=== PATIENT | male | born 1950 | race Caucasian/White ===

== ENCOUNTER 2024-05-23 10:16 | Outpatient (AMB) | payer OTHER, SELFPAY ==
--- NOTE | 2024-05-23 10:53 | HO.SPINEOV ---
Vital Signs 05/23/24 11:08 Height 5 ft 3 in Weight 189 lb BMI 33.5 Intake Visit Reasons: Low back pain and legs Intake Note: Mr. Collado is here today c/o low back pain that radiate to the legs. 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 HPI: This 74-year-old male he is having trouble with pain down his legs and heaviness after 5-10 minutes walking or standing. Sitting down or leaning forward relieves the symptoms. He is able to cycle or walk on the treadmill for longer distance due to the fact that he is in a flexed position. I saw this patient is 2020 with similar but less intense symptoms and already recommended a decompression at that time. He decided to do more conservative treatment. He even underwent a MILD procedure which unsurprisingly had no effect. The symptoms are debilitating and affecting his quality of life. The following conservative treatment options were tried without success antiinflammatories, tylenol, physical therapy, cortisone shots PMH: Hypertension Medications: Tramadol, antihypertensivum Allergies: NKDA Social history: . Retired. Nonsmoker Physical Exam: Height 5'10 weight 205 lb. He walks in a flexed position. He walks with small steps and have difficulty lifting up his right foot. However on motor exam he has full strength. No sensory deficits. No pathological reflexes. Radiological Studies: MRI of the lumbar spine done on 07/19/2023 shows severe central spinal stenosis at L3-4, L4-5 and severe L5-S1 left-sided lateral recess stenosis. An MRI of the cervical spine shows no signs of spinal cord compression. Impression/Plan: This patient is suffering from classic neurogenic claudication due to severe lumbar spinal stenosis. The patient needs a multilevel lumbar laminotomy L3-4, L4-5 and L5-S1 to decompress the thecal sac to address the neurogenic symptoms. I described the procedure and he wants to proceed. He is scheduled for 08/07/2023. He will get preoperative clearance. Thank you for allowing me to participate in your patients care. total time spent was 50 minutes in counseling ,coordination of plan, personal review of imaging, surgical decision making and subsequent plan Roman Sterling MD, PhD Sp[facility] Fellowship Trained Neurosurgeon Director, [facility] Coding Level of Care Code New Pt Level 4 (02848) Diagnoses Lumbar stenosis with neurogenic claudication M48.062
[2024-05-23 11:08] VITALS: BMI 33.5
== END 2024-05-23 11:44 | disposition home or self-care (01) ==
PROVIDERS: PCP Pediatrics; Visit Provider Neurological Surgery
DX: M48.062 Spinal stenosis, lumbar region with neurogenic claudication (principal)
CPT/HCPCS: 99204

== ENCOUNTER 2024-08-06 05:44 | Day surgery (SDC) | payer MEDICARE, SELFPAY ==
[2024-07-28 13:46] VITALS: BP 159/88; PULSE 77; RESP 16; O2SAT 98; BMI 28.7
--- NOTE | 2024-07-28 14:11 | HO.ANESPROP2 ---
Documented by User: Izabella Lyons NP 07/28/24 14:13 HPI - Anesthesia Eval Consult details Narrative: 74yo M for L3-4, L4-5 and L5-S1 Lumbar Decompression, 08/06/24 Medically optimized per PCP [facility] Active Problems Active Problems: All Active Problems Lumbar stenosis with neurogenic claudication (Acute) Past Medical History Medical History Tremor Spinal stenosis Erectile dysfunction Heartburn HLD (hyperlipidemia) HTN (hypertension) Family History Family history of problems with anesthesia: No Surgical History Surgical History History of back surgery (~05/2023) History of Problems with Anesthesia: No Social History Social History Household Members: Spouse Housing: House Are you a primary healthcare risk control consultant to a significant other at home: No Do you presently have visiting nurse or other home services: No Comment: aware of trip hazard Patient Tobacco Use Status: Former Tobacco user Tobacco use type: Cigarette Smoked in Last 30 Days: No Use of substances other than those prescribed or required for medical reasons: No Have you been hit, kicked, punched, or otherwise hurt by someone within the past year? If so, by whom?: No Are you DNR?: No Advance Directives: No Advance Directives Information Provided: Yes Advance Directives on File: No Recently lost weight without trying: No Nutrition Risks: No Nutritional Risk Poor oral hygiene: No Gender identity: Male Meds Allergies Allergy/AdvReac Type Severity Reaction Status Date / Time Penicillins AdvReac Mild Rash Verified 08/06/24 06:14 Home Medications ?Medication ?Instructions ?Recorded ?Confirmed ?Last Taken ?Type aspirin 81 mg tablet,delayed 81 mg PO DAILY 07/25/24 08/06/24 07/30/24 History release celecoxib 200 mg capsule 200 mg PO DAILY 07/25/24 08/06/24 08/06/24 05:15 History cholecalciferol (vitamin D3) 25 25 mcg PO DAILY 07/25/24 08/06/24 Unknown History mcg (1,000 unit) capsule (Vitamin D3) cyanocobalamin (vitamin B-12) 500 500 mcg PO DAILY 07/25/24 08/06/24 Unknown History mcg tablet (Vitamin B-12) metoprolol succinate 50 mg 50 mg PO DAILY 07/25/24 08/06/24 08/06/24 05:15 History tablet,extended release 24 hr omega 7-nix-htn-fish oil 1,000 mg 1 cap PO DAILY 07/25/24 08/06/24 Unknown History (120 mg-180 mg) capsule (Fish Oil) tadalafil 20 mg tablet 20 mg PO NEEDED 07/25/24 08/06/24 Unknown History tramadol 50 mg tablet 50 mg PO Q6H PRN Pain 07/25/24 08/06/24 Unknown History atorvastatin 20 mg tablet 20 mg PO DAILY 08/06/24 08/06/24 08/06/24 05:15 History Exam Height,Weight and Vital Signs: Height 5 ft 10 in Weight 90.718 kg Last Vital Signs Pulse 77 07/28/24 13:46 Resp 16 07/28/24 13:46 BP 159/88 H 07/28/24 13:46 Pulse Ox 98 07/28/24 13:46 O2 Del Method Room Air 07/28/24 13:46 Pertinent Lab Results Pertinent Lab Results: CBC and BMP from PCP 07/2024 [place] Narrative Narrative: EKG 07/2024 ST @ 103 Airway Mallampati Class: III TM Dist: >3cm Neck ROM: Full Heart: RRR Lungs: CTAB Assessment and Plan Assessment Anesthesia Assessment: Anesthesia Plan Discussed and PAT Visit Final Anesthetic Review Family History of Problems with Anesthesia: No History of Problems with Anesthesia: No Documented by User: Carol Carrasco MD 08/06/24 08:50 PMFSH Past Medical History Medical History Tremor Spinal stenosis Erectile dysfunction Heartburn HLD (hyperlipidemia) HTN (hypertension) Surgical History Surgical History History of back surgery (~05/2023) Social History Social History Household Members: Spouse Housing: House Are you a primary healthcare risk control consultant to a significant other at home: No Do you presently have visiting nurse or other home services: No Comment: aware of trip hazard Patient Tobacco Use Status: Former Tobacco user Tobacco use type: Cigarette Smoked in Last 30 Days: No Use of substances other than those prescribed or required for medical reasons: No Have you been hit, kicked, punched, or otherwise hurt by someone within the past year? If so, by whom?: No Are you DNR?: No Advance Directives: No Advance Directives Information Provided: Yes Advance Directives on File: No Recently lost weight without trying: No Nutrition Risks: No Nutritional Risk Poor oral hygiene: No Gender identity: Male Meds Allergies Allergy/AdvReac Type Severity Reaction Status Date / Time Penicillins AdvReac Mild Rash Verified 08/06/24 06:14 Home Medications ?Medication ?Instructions ?Recorded ?Confirmed ?Last Taken ?Type aspirin 81 mg tablet,delayed 81 mg PO DAILY 07/25/24 08/06/24 07/30/24 History release celecoxib 200 mg capsule 200 mg PO DAILY 07/25/24 08/06/24 08/06/24 05:15 History cholecalciferol (vitamin D3) 25 25 mcg PO DAILY 07/25/24 08/06/24 Unknown History mcg (1,000 unit) capsule (Vitamin D3) cyanocobalamin (vitamin B-12) 500 500 mcg PO DAILY 07/25/24 08/06/24 Unknown History mcg tablet (Vitamin B-12) metoprolol succinate 50 mg 50 mg PO DAILY 07/25/24 08/06/24 08/06/24 05:15 History tablet,extended release 24 hr omega 0-eyu-bbv-fish oil 1,000 mg 1 cap PO DAILY 07/25/24 08/06/24 Unknown History (120 mg-180 mg) capsule (Fish Oil) tadalafil 20 mg tablet 20 mg PO NEEDED 07/25/24 08/06/24 Unknown History tramadol 50 mg tablet 50 mg PO Q6H PRN Pain 07/25/24 08/06/24 Unknown History atorvastatin 20 mg tablet 20 mg PO DAILY 08/06/24 08/06/24 08/06/24 05:15 History Assessment and Plan Assessment Anesthesia Assessment: Chart Reviewed Final Anesthetic Review NPO: Yes ASA Class: II Final Preanesthetic Review: No Changes in Pt Med Stat, Meds/Allgs Chart Reviewed, Consent Obtained/Reviewed and Anes Risks/Benef Reviewed Patient Risk: Low Procedure Risk: Intermediate Anesthetic Plan Anesthetic Plan: GA Disposition: Standard PACU
[2024-08-06] VITALS (7 sets, daily range): BP systolic 116–170; BP diastolic 54–86; PULSE 86–97; RESP 12–16; TEMP 36.1–37; O2SAT 96–97; BMI 28.7
--- NOTE | ~2024-08-06 | FL_ITS ---
EXAMINATION: FL GUIDANCE ONLY HISTORY: l3-s1 decompression COMPARISON: None available. TECHNIQUE: Fluoroscopy time: 6.2 seconds. Cumulative Dose: 6.1569 mGy. DAP: 1.9968 mGym2 Images: 3. FINDINGS: Multiple images of the lumbar spine performed in the lateral projection demonstrate probes directed toward the L3-4, L4-5, and L5-S1 intervertebral disc spaces from posterior approaches. FL/FL guidance in OR IMPRESSION: Fluoroscopy during procedure. Please see procedure report for additional information. Electronically signed by: David Dhaliwal MD 08/08/2024 11:01 AM [facility] [place]
[2024-08-06] MEDS: methocarbamoL 750 MG TABLET PO (06:36)
[2024-08-06] MEDS: Gabapentin 300 MG CAPSULE PO (06:36)
[2024-08-06] MEDS: Lactated Ringers 1,000 ML 100 ML IVCONT (06:44)
--- NOTE | 2024-08-06 06:54 | MHC.SHP ---
Pre-Procedural Eval Section A - 24 Hr Update-Section A only Date of Service: 08/06/24 Section B - Complete if H&P > 30 days Chief Complaint: Spinal stenosis, lumbar region with neurogenic cla Allergies: Allergies Allergy/AdvReac Type Severity Reaction Status Date / Time Penicillins AdvReac Mild Rash Verified 08/06/24 06:14 Review of Systems Sugical H&P ROS: Negative: Constitution, Cardiovascular, Respiratory, Neurological, Psychiatric, Hem-Onc, Allergic/Immunologic, Gastrointestinal, Genitourinary, Musculoskeletal, Integumentary, Endocrine and Eyes/Ears/Nose/Throat Exam Surgical H&P Exam: Not Evaluated: HEENT, Not Evaluated: Heart, Not Evaluated: Lungs, Not Evaluated: Extremities, Not Evaluated: Abdomen, Not Evaluated: Skin and Not Evaluated: Neurological Exam Comment: The patient is awake, alert, no acute distress. Proposed surgical incision site is clean, dry, with no signs of recent surgery or trauma. Plan Diagnosis/Plan: Unchanged I have reviewed the history and physical and performed a pertinent physical examination on my patient. No changes have occurred unless specified. Plan remains the same, L3-S1 lumbar decompression. Time Spent With Patient Time: Total time managing care of this patient today ___13_ minutes.
[2024-08-06] MEDS: Acetaminophen 1,000 MG/100 ML PIGGYBACK 400 MG IV (07:30)
[2024-08-06] MEDS: ceFAZolin Sodium/Dextrose,Iso 2 GM/50 ML PIGGYBACK IV (07:30)
--- NOTE | 2024-08-06 10:03 | P.OP_ITS ---
Operative Note Operative Note Date of Service: 08/06/24 Narrative: Preoperative Diagnosis: L3-4, L4-5 and L5-S1 spinal stenosis/lateral recess stenosis/neural foraminal stenosis Operation: L3-L4, L4-5, L5-S1 Laminotomy, Partial facetectomy and foraminotomy with use of microscope Consent Informed Consent was obtained for this operation. I have explained the nature, purpose and benefits of the operation. I have discussed the risks and benefit of the operation including possible complications or adverse events with patient/family. Alternative(s) were discussed with the patient with their relative benefits and risks as well as the consequences of not accepting the operation were included in obtaining consent. Surgeon: JOHN REA MD, PHD Procedure Assisted By: Nicholas Raza Description of Procedure This 74-year-old male suffering from neurogenic claudication due to multilevel lumbar stenosis.. The patient was offered a decompression of the L3-4, L4-5 and L5-S1 levels. The procedure and complications were explained. The patient was consented. The patient was brought to the operating room and endotracheally intubated. The patient was turned in prone position on the Karl frame. Prep and drape was done followed by timeout. The Physician quality control assistant provided access. A mid lumbar incision was made followed by release of the paravertebral muscle on the left side to expose the L3-S1 laminae and facet joints. An intraoperative x-ray was obtained to confirm the correct levels. The microscope was brought in. I took over the procedure. The high-speed drill was used to do a left L3-4 brii laminotomy until flavum ligament was reached. A #2 Kerrison was used to expand the laminotomy near flush to the pedicles and to include a partial facetectomy. The flavum ligament was opened and resected with a #3 Kerrison to decompress the underlying thecal sac. The flavum ligament was removed to decompress the lateral recess and the exiting L4 nerve root. Then the patient turned contralaterally. The spinous process was undercut. The plane was created between the dura and the flavum ligament contralaterally which was accordingly resected to decompress the contralateral lateral recess and exiting nerve root. A long nerve hook could be easily passed along the medial side of the pedicles as a sign of adequate decompression. Then attention was turned to the L4-5 level where a similar type of decompression was done. A left L4-5 hemilaminotomy was done. The flavum ligament was opened and resected to decompress the exiting L5 nerve root in the lateral recess. Patient was turned contralaterally with undercutting of the spinous process I was able to d ecompress the contralateral side in a similar fashion. Finally the L5-S1 level was done through the left side by doing a L5-S1 hemilaminotomy. The S1 nerve root was decompressed as well as the thecal sac bilaterally. The microscope was removed. Hemostasis was done. The physician quality control assistant close the Incision in 2 layers. Steri-Strips were used to approximate incision. An OpSite with Tegaderm was used to cover the incision. All sponge needle counts were correct. Patient was extubated and transported in stable is to recovery room. Anesthesia: General Estimated Blood Loss (ml): 50 mL Complications: None Duration of Surgery: 2 hours Postoperative Plan: Discharge to home
--- NOTE | 2024-08-06 10:06 | P.DS_ITS ---
DS: Providers Provider Date of Service: 08/06/24 Date of discharge: 08/06/24 Primary care physician: Israel Meeks MD DS: Summary Time Attestation Discharge Coordination Time (in mins): 13 Quality: Safe Use of Opioids Does Pt have an Active Cancer Diagnosis on the Problem List?: No Quality: Stroke Does the patient have a stroke diagnosis?: No Physical Exam Vital Signs: Vital Signs: Last Vital Signs Temp 98.6 F 08/06/24 06:22 Pulse 86 08/06/24 06:22 Resp 16 08/06/24 06:22 BP 151/83 H 08/06/24 06:44 Pulse Ox 97 08/06/24 06:22 O2 Del Method Room Air 08/06/24 06:22 BMI result Body Mass Index 28.7 Discharge Plan Discharge Patient Disposition: Home, Self-Care Referrals: Israel Meeks MD [Primary Care Provider] - 1 Week Discharge Medications: New oxycodone 5 mg tablet 5 mg PO Q6H PRN (Reason: pain) Qty: 28 0RF Rx Instructions: Partial Fill upon patient request. Continued metoprolol succinate 50 mg tablet extended release 24 hr 50 mg PO DAILY tramadol 50 mg tablet 50 mg PO Q6H PRN (Reason: Pain) cyanocobalamin (vitamin B-12) [Vitamin B-12] 500 mcg Tablet 500 mcg PO DAILY cholecalciferol (vitamin D3) [Vitamin D3] 25 mcg (1,000 unit) Capsule 25 mcg PO DAILY tadalafil 20 mg tablet 20 mg PO NEEDED omega 8-iri-tpw-fish oil [Fish Oil] 1,000 (120-180) mg Capsule 1 cap PO DAILY atorvastatin 20 mg tablet 20 mg PO DAILY Held celecoxib 200 mg capsule 200 mg PO DAILY Hold Instructions: Resume on 08/07/24. aspirin 81 mg Tablet,Delayed Release (Dr/Ec) 81 mg PO DAILY Hold Instructions: Resume on 08/10/24. Discharge Orders: Discharge Order (Routine); Ordered 08/06/24 Ordered By: Nicholas Cary Diet: Advance to usual diet Activity on Discharge: As tolerated Activity Restrictions/Additional Instructions: After your spinal surgery we ask you to observe the following restrictions/guidelines: Activity: It is normal to feel some discomfort as you increase your activity, but that will improve with time. We ask you avoid heavy lifting or acitivities that cause pain. As a general rule, 8lbs is a safe limit for lifting right after surgery. Walk as much as you feel comfortable but not to exhaustion. You will feel extra tired the first few days after surgery. Stay well hydrated. It is OK to walk up and down stairs You may return to driving when you are off narcotics (such as vicodin, oxycodone, dilaudid, etc), and you are back to normal functional capacity. If you have any concerns please check with office before driving. Return to work is specific to each patient and each surgery, so please speak with your doctor/PA at first follow up. Please bring paperwork such as FMLA at that time if you need it filled out. Medications: Please hold your Aspirin for 3 days after surgery. We recommend you take 1,000mg Tylenol every 8 hours for the first few weeks after surgery, if you do not have any liver issues and can tolerate this medication. Do not exceed 4,000mg daily. We will give you a short supply of narcotics after surgery (usually one weeks worth). If you need more please call the office but do not use more than prescribed. You will need to give our office 48 hours notice if you need narcotics refilled and we do not fill narcotics on weekends or evenings. If you are on a narcotic, it is a good idea to take a stool softener such as colace or senna to avoid constipation If you take blood thinner such as aspirin, Plavix, Coumadin, Effient, Eliquis etc for conditions such as Afib, DVT, Pulmonary embolus, coronary disease, stents etc please speak with your surgeon about specific details as to when you can resume these medications. You can resume other NSAIDs on post op day 1 (eg: Meloxicam, Motrin, Naproxen, etc). Follow up: Please call the office, , after surgery to arrange a 3 week follow up for wound check. Wound Care: You may remove your dressing on the first day after surgery. ?You may ?leave open to air. Please do not remove the steri strips underneath. they will fall off on their own in one week. IT IS NORMAL FOR THE WOUND TO OOZE OR BE BLOODY FOR A FEW DAYS AFTER SURGERY. ?IF THIS HAPPENS JUST PLACE NEW DRESSING OVER IT TO AVOID STAINING CLOTHES. You may shower on post op day # 1 We ask that you do not let the water soak the wound. If it does get wet, just towel dry lightly. Please do not scrub your incision or place any type of chemical/ointment on the wound. No tub baths, pools or jacuzzis for one month. If you have any leaking or redness from your wound, or fevers, please call the office. Print Language: Japanese
== END 2024-08-06 11:49 | disposition home or self-care (01) ==
PROVIDERS: PCP Pediatrics; Visit Provider Neurological Surgery
PROC: (CPT 63047; principal; 2024-08-06 07:30)
DX: M48.062 Spinal stenosis, lumbar region with neurogenic claudication (principal); I10 Essential (primary) hypertension; E78.00 Pure hypercholesterolemia, unspecified; R12 Heartburn; N52.9 Male erectile dysfunction, unspecified; Z79.82 Long term (current) use of aspirin; Z79.899 Other long term (current) drug therapy; Z88.8 Allergy status to other drugs, medicaments and biological substances; Z87.891 Personal history of nicotine dependence
CPT/HCPCS: 63047; 63048 ×2; J0131; J0690; J1100; J1885; J2003; J2405; J2704; J3010

== ENCOUNTER → 2024-08-06 05:44 | Outpatient (BNV) | payer MEDICARE, SELFPAY | PROVIDERS: PCP Pediatrics; Visit Provider Neurological Surgery | DX: M48.062 Spinal stenosis, lumbar region with neurogenic claudication (principal) | CPT/HCPCS: 63047; 63048; 99499 ==

== ENCOUNTER 2024-08-27 14:55 | Outpatient (AMB) | payer OTHER, SELFPAY ==
--- NOTE | 2024-08-27 14:57 | A.SPINEOV_ITS ---
Intake Visit Reasons: 1st post op Intake Note: Mr. Collado is here today for his 1st post op. Receiving Coordinator Required: No Allergies Penicillins Adverse Reaction (Mild, Verified 08/27/24 14:58) Rash Assessment & Plan Assessment & Plan (1) Lumbar stenosis with neurogenic claudication: Code(s): M48.062 - Spinal stenosis, lumbar region with neurogenic claudication Category: Medical Plan Procedure: L3-L4, L4-5, L5-S1 Lumbar decompression Zachary is a pleasant 74-year-old male who comes in today for his 1st postoperative visit after having an L3-S1 lumbar decompression completed by Dr. Sterling. He reports that overall he has been doing well since his surgery. He does state that he had quite a bit of swelling and bruising near the incision site after surgery, but this has subsided. He feels he is walking slightly better, but still feel he has pain with prolonged ambulation. Thankfully he is able to walk about 100 yd before feeling pain now. He denies any back pain. No new neurological deficits. The patient ambulates well and rises from a seated position without difficulty. His posterior incision site is closed and well healing. No signs of drainage or edema. I would like Zachary to follow up with us again in 6 weeks for his 2nd postoperative visit. Nicholas Sterling MD,PhD [facility] Coding Level of Care Code Global (13470) Diagnoses Lumbar stenosis with neurogenic claudication M48.062
--- OUTSIDE RECORDS SUMMARY | 2024-08-27 17:56 | XMS_ITS | Clinical Summary ---
Author Organization [facility] [address] [facility] lding Address [address] [place] [address] Phone Care Team Providers Care Hotel Sales Manager Name Role Phone Charity Meeks MD Primary Care Provider [phone] Allergies Active Allergy Reactions Criticality Noted Date Comments Atorvastatin Pain Medium 12/18/2023 Medications celecoxib (CeleBREX) 200 mg capsule Take 1 capsule (200 mg total) by mouth 1 (one) time each day. 30 capsule 2 4 Active tadalafiL (CIALIS) 20 mg tablet 4 Active aspirin 81 mg capsule Take 1 tablet by mouth 1 (one) time each day. 7 Active cyanocobalamin (VITAMIN B-12) 500 mcg tablet Take by mouth. 7 Active omega3/dha/epa /fish oil/vit D3 (FISH OIL-VIT D3 ORAL) Take by mouth. 7 Active losartan (COZAAR) 25 mg tablet TAKE 1 TABLET BY MOUTH EVERY DAY 90 tablet 1 5 Active losartan (COZAAR) 50 mg tablet TAKE 1 TABLET BY MOUTH EVERY DAY 90 tablet 1 5 Active metoprolol succinate (TOPROL-XL) 50 mg 24 hr tablet TAKE 1 TABLET BY MOUTH EVERY DAY 90 tablet 1 5 Active metoprolol succinate (TOPROL-XL) 50 mg 24 hr tablet TAKE 1 TABLET BY MOUTH EVERY DAY 90 tablet 4 08/05/19 25 Discontinued Active Problems Problem Noted Date Diagnosed Date Hypertension 11/19/2023 Spinal stenosis of lumbar re gion with neurogenic claudication 05/18/2021 Overweight (BMI 25.0-29.9) 09/14/2017 Erectile dysfunction 04/30/2017 Heart burn 04/30/2017 Hypercholesteremia 01/11/2006 Encounters Date Type Department Care Team Description 07/22/2024 10:00 AM EST Consult Adult Medicine - [place] [address] [place] [address] Charity Meeks MD Preop cardiovascular exam (Primary Dx) 06/09/2024 Telephone Adult Medicine - [place] [address] [place] [address] Angelina Kowalski, KEV Appointment from Last 3 Months Immunizations Name Administration Dates Next Due Influenza, Unspecified 05/04/2016 Moderna SARS-CoV-2 COVID-19, mRNA, LNP-S, preservative free 09/21/2020,08/24/2020 Surgical History Surgery Date Site/Laterality Comments OTHER SURGICAL HISTORY PROCEDURE: DENIES PREVIOUS SURGERY Medical History Medical History Date Comments Hypercholesteremia 01/11/2006 DX:Hyperchole steremia Heart burn 04/30/2017 DX:Heart burn Family History Medical History Relation Name Comments Diabetes Mother Diabetes Sister 1 Relation Name Status Comments Mother Sister 1 Sister 2 Social History Tobacco Use Types Packs/Day Years Used Date Smoking Tobacco: Former Cigarettes Q uit: 07/05/2017 Smokeless Tobacco: Never Tobacco Cessation:Counseling Given: Not Answered Alcohol Use Standard Drinks/Week Comments Yes 2 (1 standard drink = 0.6 oz pur e alcohol) Housing Instability Answer Date Recorde d Are you worried that in the next 2 months you may not have stable housing? No 07/15/2024 Food Access & Nutrition Answer Date Rec orded Do you have access to a vari ety of food including fruits and vegetables? Yes 07/15/2024 Access to Healthcare Answer Date Record ed Within the last 3 months, donovan w many times did you visit the emergency department for your medical care? 0 07/15/2024 Health Literacy Answer Date Recorded How often do you need to hav e someone help you when you read instructions, pamphlets, or other written material from your doctor or pharmacy? Never 07/15/2024 Caregiver: How often do you need to have someone help you when you read instructions, pamphlets, or other written material from your doctor or pharmacy? Not on file 07/15/2024 Financial Risk Answer Date Recorded How hard is it for you to pa y for the very basics like food, housing, medical care, and air conditioning / heating? Somewhat hard 07/15/2024 Transportation Answer Date Recorded Has the lack of transportati on kept you from meetings, work, or from getting things needed for daily living? No Has the lack of transportati on kept you from medical appointments or from getting medications? No 07/15/2024 Social Isolation Answer Date Recorded How often do you feel lonely or isolated from th ose around you? Never 07/15/2024 Food Risk Answer Date Recorded Within the past 12 months we worried whether our food would run out before we got money to buy more. Never true 07/15/2024 Within the past 12 months th e food we bought just didn't last and we didn't have money to get more. Never true 07/15/2024 Dependent Care Answer Date Recorded Do you need help finding or paying for care for your loved ones. For example, children's program coordinator or elderly care for an older adult? No 07/15/2024 Education Answer Date Recorded Do you think completing more education or training, like finishing a GED, going to college, or learning a trade, would be helpful for you? No 07/15/2024 Employment and Income Answer Date Recor ded During the last four weeks, have you been actively looking for work? No 07/15/2024 Living Situation Answer Date Recorded What is your living situation? 0 07/15/2024 Sex and Gender Information Value Date Recorded Sex Assigned at Not on file Legal Sex Male 1:35 PM EST Gender Identity Not on file Sexual Orientation Not on file Obstetrics History Last Filed Vital Signs Vital Sign Reading Time Taken Comments Blood Pressure 132/92 07/22/2024 10:03 AM EST Pulse 115 07/22/2024 10:03 AM EST Temperature 36.8 ??C (98.3 ??F) 07/22/2024 10:[address] Respiratory Rate - - Oxygen Saturation - - Inhaled Oxygen Concentration - - Weight 90.7 kg (200 lb) 07/22/2024 10:03 AM EST Height 177.8 cm (5' 10 ) 07/22/2024 10:03 AM EST Body Mass Index 28.7 07/22/2024 10:03 AM EST Plan of Treatment Upcoming Encounters Date Type Department Care Team (Late st Contact Info) Description 10/28/2024 11:00 AM EDT Office Visit Adult Medicine - [place] [address] [place] [id number] Kaye Zelaya PA [address] [place] [address] Health Maintenance Due Date Last Done Comments DTaP,Tdap,and Td Vaccines (1 - Tdap) 1968 Pneumococcal Vaccine: 50+ Years (1 of 1 - PCV) 1999 Zoster Vaccines (1 of 2) 1999 Colorectal Cancer Screening: Stool Based Tests (FOBT/FIT) 05/12/2022 Falls Risk Assessment 05/12/2022 Medicare Annual Wellness Visit 05/12/2022 COVID-19 Vaccine (4 - 2023-2 5 season) 2024 06/07/2021, 09/21/2020, 08/24/2020 Influenza Vaccine (#1) 2024 05/04/2016 RSV Immunization Patients 60 + Years Old (1 - 1-dose 75+ series) 2024 Depression Screening 07/15/2025 07/15/2024 Social Influencers of Health Screening 07/15/2025 07/15/2024 Hypertension/CHF/CAD Annual BMP Blood Test 07/22/2025 07/22/2024, 07/13/2023 Cholesterol Screening (Lipid Panel) 04/07/2027 04/07/2022, 10/06/2020 Hepatitis C Screening Completed 10/26/2015 Colorectal Cancer Screening: Colonoscopy Discontinued 04/30/2017 Abdominal Aortic Aneurysm (AAA) Screen Completed 02/09/2021 HIB Vaccines Aged Out No longer eligi ble based on patient's age to complete this topic HPV Vaccines Aged Out No longer eligi ble based on patient's age to complete this topic Hepatitis A Vaccines Aged Out No long er eligible based on patient's age to complete this topic Hepatitis B Vaccines Aged Out No long er eligible based on patient's age to complete this topic IPV Vaccines Aged Out No longer eligi ble based on patient's age to complete this topic MMR Vaccines Aged Out No longer eligi ble based on patient's age to complete this topic Meningococcal ACWY Vaccine Aged Out N o longer eligible based on patient's age to complete this topic Meningococcal B Vacine Aged Out No lo nger eligible based on patient's age to complete this topic RSV Immunization Patients Under 20 months Aged Out No longer eligible based on patient's age to complete this topic Varicella Vaccines Aged Out No longer eligible based on patient's age to complete this topic Procedures Procedure Name Priority Date/Time Associated Diagnosis Comments CBC WITH AUTO DIFFERENTIAL Routine 07/22/2024 10:57 AM EST Pre-operative examination COMPREHENSIVE METABOLIC PANEL Routine 07/22/2024 10:57 AM EST Pre-operative examination CBC AND DIFFERENTIAL Routine 07/22/2024 10:57 AM EST Pre-operative examination ECG 12-LEAD Routine 07/22/2024 10:56 AM EST Preop cardiovascular exam ABDOMINAL AORTIC ANEURYSM SCRREN Routine 02/09/2021 LIPID PANEL Routine 10/06/2020 COLONOSCOPY Routine 04/30/2017 HEPATITIS C SCREENING Routine 10/26/2015 from Last 3 Months or Most Recently Relevant to Health Maintenance Results * CBC auto differential (07/22/2024 10:57 AM EST) WBC 6.3 4.8 - 10.8 K/mcL LAB HEMETOLOGY METHOD 07/22/2024 12:18 PM EST [facility] RBC 4.90 4.50 - 5.50 M/mcL LAB HEMETOLOGY METHOD 07/22/2024 12:18 PM EST [facility] Hemoglobin 14.4 13.5 - 17.5 g/dL LAB HEMETOLOGY METHOD 07/22/2024 12:18 PM [facility] Hematocrit 43.6 42.0 - 54.0 % LAB HEMETOLOGY METHOD 07/22/2024 12:18 PM [facility] MCV 89.5 79.0 - 98.0 FL LAB HEMETOLOGY METHOD 07/22/2024 12:18 PM [facility] MCH 29.6 27.0 - 32.0 pcg LAB HEMETOLOGY METHOD 07/22/2024 12:18 PM [facility] MCHC 33.0 32.0 - 37.0 g/dL LAB HEMETOLOGY METHOD 07/22/2024 12:18 PM [facility] RDW 13.2 11.0 - 15.0 % LAB HEMETOLOGY METHOD 07/22/2024 12:18 PM [facility] Platelets 269 130 - 400 K/mcL LAB HEMETOLOGY METHOD 07/22/2024 12:18 PM [facility] MPV 9.5 7.0 - 11.0 FL LAB HEMETOLOGY METHOD 07/22/2024 12:18 PM [facility] NRBC 0.0 <1.0 % LAB HEMETOLOGY METHOD 07/22/2024 12:18 PM [facility] NRBC Absolute 0.00 <0.10 K/mcL LAB HEMETOLOGY METHOD 07/22/2024 12:18 PM [facility] Neutrophils Relative 64.0 % LAB HEMETOLOGY METHOD 07/22/2024 12:18 PM [facility] Lymphocytes Relative 24.9 % LAB HEMETOLOGY METHOD 07/22/2024 12:18 PM [facility] Monocytes Relative 9.2 % LAB HEMETOLOGY METHOD 07/22/2024 12:18 PM [facility] Eosinophils Relative 0.8 % LAB HEMETOLOGY METHOD 07/22/2024 12:18 PM EST [facility] Basophils Relative 0.8 % LAB HEMETOLOGY METHOD 07/22/2024 12:18 PM EST [facility] Immature Granulocytes Relative 0.3 % LAB HEMETOLOGY METHOD 07/22/2024 12:18 PM [facility] Neutrophils Absolute 4.04 1.50 - 7.00 K/mcL LAB HEMETOLOGY METHOD 07/22/2024 12:18 PM EST [facility] Lymphocytes Absolute 1.57 1.00 - 5.00 K/mcL LAB HEMETOLOGY METHOD 07/22/2024 12:18 PM EST [facility] Monocytes Absolute 0.58 0.20 - 1.00 K/mcL LAB HEMETOLOGY METHOD 07/22/2024 12:18 PM [facility] Eosinophils Absolute 0.05 0.00 - 0.50 K/mcL LAB HEMETOLOGY METHOD 07/22/2024 12:18 PM EST [facility] Basophils Absolute 0.05 0.00 - 0.20 K/mcL LAB HEMETOLOGY METHOD 07/22/2024 12:18 PM [facility] Immature Granulocytes Absolute 0.02 0.00 - 0.03 K/mcL LAB HEMETOLOGY METHOD 07/22/2024 12:18 PM [facility] Blood Venous blood specimen / Unknown Venipuncture / Unknown 07/22/2024 10:57 AM EST 07/22/2024 10:57 AM EST us C Rishi Meeks MD LAB BLOOD ORDERABLES Final Res ult [facility] [address] [place] [address], * (ABNORMAL) Comprehensive metabolic panel (07/22/2024 10:57 AM EST) Sodium 136 133 - 145 mmol/L LAB CHEMISTRY METHOD 07/22/2024 12:47 PM [facility] Potassium 4.6 3.5 - 5.5 mmol/L LAB CHEMISTRY METHOD 07/22/2024 12:47 PM [facility] Chloride 104 96 - 110 mmol/L LAB CHEMISTRY METHOD 07/22/2024 12:47 PM [facility] CO2 28 21 - 32 mmol/L LAB CHEMISTRY METHOD 07/22/2024 12:47 PM [facility] Anion Gap 4 3 - 11 LAB CHEMISTRY METHOD 07/22/2024 12:47 PM [facility] Glucose 106(H) 70 - 100 mg/dL LAB CHEMISTRY METHOD 07/22/2024 12:47 PM [facility] BUN 23 5 - 25 mg/dL LAB CHEMISTRY METHOD 07/22/2024 12:47 PM [facility] Creatinine 1.25 0.70 - 1.30 mg/dL LAB CHEMISTRY METHOD 07/22/2024 12:47 PM [facility] eGFR 60 >=60 mL/min/1. 73m2 LAB CHEMISTRY METHOD 07/22/2024 12:47 PM [facility] Comment:Calculation based on the??Chronic Kidney Disease Epidemiology Collaboration (CKD-EPI) equation refit??without adjustment for race. BUN/Creatinine Ratio 18.4 LAB CHEMISTRY METHOD 07/22/2024 12:47 PM [facility] Calcium 10.3 8.5 - 10.5 mg/dL LAB CHEMISTRY METHOD 07/22/2024 12:47 PM [facility] AST (SGOT) 17 10 - 42 unit/L LAB CHEMISTRY METHOD 07/22/2024 12:47 PM [facility] ALT (SGPT) 37 10 - 60 unit/L LAB CHEMISTRY METHOD 07/22/2024 12:47 PM [facility] Alkaline Phosphatase 80 42 - 121 unit/L LAB CHEMISTRY METHOD 07/22/2024 12:47 PM EST [facility] Total Protein 7.5 6.0 - 8.0 g/dL LAB CHEMISTRY METHOD 07/22/2024 12:47 PM EST [facility] Albumin 4.2 3.2 - 5.0 g/dL LAB CHEMISTRY METHOD 07/22/2024 12:47 PM EST [facility] Total Bilirubin 0.5 0.0 - 1.4 mg/dL LAB CHEMISTRY METHOD 07/22/2024 12:47 PM EST [facility] Blood Venous blood specimen / Unknown Venipuncture / Unknown 07/22/2024 10:57 AM EST 07/22/2024 10:57 AM EST Charity Meeks MD LAB BLOOD ORDERABLES Final Res ult [facility] [address] [place] [address], * ECG 12 lead (07/22/2024 10:56 AM EST) Narrative Charity Meeks MD - 07/22/2024 10:56 AM EST Sinus tachycardia Charity Meeks MD ECG ORDERABLES Final Result * Abdominal Aortic Aneurysm Screen (02/09/2021) Pathologist [facility] Abdominal Aortic Aneurysm (AAA) Screening ABSTRACTED Anatomical Region Laterality Modality Other Historical Delfina [facility] Final Result * (ABNORMAL) Lipid panel (10/06/2020) LDL/HDL Ratio 4 0 - 4 Triglycerides 194(A) 0 - 150 mg/dL Cholesterol 204(A) 0 - 200 mg/dL HDL 58 >=40 mg/dL LDL Cholesterol 108(A) 0 - 100 mg/dL Blood Venous blood specimen / Unknown Jacob Mathis MD LAB BLOOD ORDERABLES Cookie l Result * Colonoscopy (04/30/2017) Colonoscopy no interpretation , abstracted Anatomical Region Laterality Modality Other Historical Provider HEALTH MAINTENANCE Final Result * Hepatitis C Screening (10/26/2015) Hepatitis C Screening ABSTRACTED Historical Provider HEALTH MAINTENANCE Final Result from Last 3 Months or Most Recently Relevant to Health Maintenance Insurance [employer] Care Teams Hotel Sales Manager Relationship Specialty Start Date End Date Charity Meeks MD [address] [place] [address] PCP - General Internal Medicine 05/30/24
--- OUTSIDE RECORDS SUMMARY | 2024-08-27 17:56 | XMS_ITS | Data Portability ---
Author Organization [place] - [facility], [facility] Address [address] [place] [address] Care Team Providers Care Timber Inspector Name Role Phone [facility] Primary Care Provi evan Assessment Encounter Date Assessment Date Assessment LastModified by Organization Details LastModified Time 03/07/2024 03/07/2024 I am seeing the patient today under the supervision of who was available but who did not see the patient. Please see procedure documentation for further information about the injection performed today. [email or web address] Not available 03/07/2024 07:25:10 Plan of Treatment Reminders Order Date Submit Date Provider Last Modified By Organization Details Last Modified Time Details Appointments None recorded. Lab None recorded. Referral None recorded. Procedures None recorded. Surgeries None recorded. Imaging XR, knee, 4 or more view - 312 right knee 4v 2024 025 claudia [facility], [address] [facility], [facility] [address], [place], [address], 5 16:07:02 Medication Orders meloxicam 15 mg tablet 2023 024 [id number], [address] [place], [address], 4 11:09:28 Patient TargetsNo targets recorded. Patient Instructions Encounter Date Encounter Id Patient Instructions Last Modified By Organization Details Last Modified Time 03/07/2024 [id number] You have been provided with a viscosupplementation injection in order to reduce the pain that you are experiencing from your arthritis. The injection consists of a lubricating injection called hyaluronic acid. Please note that not everyone will have a lasting response following the injection. PATIENT INSTRUCTIONS I recommend icing the affected area for 20 minutes 3-4 times per day. It is recommended that you refrain from any high level activities using the joint or limb that was injected for approximately 24-48 hours. Normal day-to-day activities are generally not a problem. POSSIBLE SIDE EFFECTS Individuals with dark complexions may experience some skin discoloration locally at the site of the injection. There is the possibility of an increase in discomfort within 48 hours following the injection. This is called a ? flare? . To help minimize the chances of this, please see the post-injection instructions above. There is a less than 1% chance of an infection. If you notice any signs of infection (redness, warmth, drainage, fever greater than 100 degrees) please call our office or contact us through the portal ZAN. [email or web address] Not available 03/07/2024 07:25:14 Reason for Referral None Reported. Results Created Date Observation Date Name Description Value Unit Range Abnormal Flag Note LastModifiedBy Organization Detail LastModifiedTime 06/20/19 25 06/20/2024 XR, knee, 4 or more view [email or web address]:/ [email or web address] ?Encry pted=s hAaTro YD8dLq bEUv6g %2BXZw aYqtaq 0bqfl% 2Fg9IQ a4ajBk vP9nXo QUaueC m3YtLR FvZlgJ JJ8mAn HZtai3 [id number] AC0Kqb 3uFVKO kKiQtr MwF INTERFACE [facility] [address] [facility] [address], [place], [address], 06/20/2024 13:44:47 06/20/19 25 06/20/2024 XR, knee, 4 or more view http:/ [email or web address] ?Encry pted=s hAaTro YD8dLq bEUv6g %2BXZw aYqtaq 0bqfl% 2Fg9IQ a4ajBk vP9nXo QUaueC m3YtLR FvZlgJ JJ8mAn HZtai3 4z9516 AC0Kqb 3uFVKO kKiQtr MwF INTERFACE [facility] [address], [place], [address], 06/20/2024 13:44:49 Result Notes None recorded. Problems Name Problem SNOMED Code Status Onset Date Resolution Date Notes Provider Name and Address Organization Details Recorded Time Osteoarthri tis of right knee joint 1114250879134 00 Active 2023 Winifred Hays i, PA-C [address], [place], [address], [facility] 10:10:30 Problem Notes None recorded. Procedures Surgical History Date Name Laterality Status Provider Name and Address Organization Details Recorded Time 5 Sports Knee 4&1 completed Winifred Morales PA-C [address] [facility], [place], [address], [facility] 06/20/2024 10:32:57 4 Durolane Knee Injection completed José Antonio Alcaraz PA-C [address], [place], [address], [facility] 03/07/2024 07:25:21 4 Sports Knee 4&1 completed Destiny Mireles PA-C [address] [facility], [place], [address], [facility] 01/08/2024 09:17:47 4 Sports Knee 4&1 completed Destiny Mireles PA-C [address], [place], [address], [facility] 10/04/2023 09:52:50 Imaging Results Imaging Date Name Status LastModified by Organiz ation Details LastModified Time 06/20/2024 XR, knee, 4 or more view completed INTERFACE [facility] [address], [place], [address], 06/20/2024 13:44:47 06/20/2024 XR, knee, 4 or more view completed INTERFACE [facility] [address], [place], [address], 06/20/2024 13:44:49 Procedure Notes None recorded. Medical Equipment None Reported. Allergies No known drug allergies Medications Name Sig Start Date Stop Date Status Note LastModified by Organization Details LastModified Time losartan 50 mg tablet TAKE 1 TABLET BY MOUTH EVERY DAY active Not Available Not Available No t Available celecoxib 200 mg capsule TAKE 1 CAPSULE BY MOUTH 1 TIME EACH DAY. active Not Available Not Available No t Available atorvastati n 20 mg tablet TAKE 1 TABLET BY MOUTH EVERY DAY active Not Available Not Available No t Available metoprolol succinate ER 50 mg tablet,exte nded release 24 hr TAKE 1 TABLET BY MOUTH EVERY DAY active Not Available Not Available No t Available meloxicam 15 mg tablet TAKE 1 TABLET EVERY DAY BY ORAL ROUTE AFTER MEAL(S). 2023 active Not Available Not Available Not Avai lable amlodipine 5 mg tablet TAKE 1 TABLET BY MOUTH DAILY FOR 180 DAYS. TAKE BEFORE BED active Not Available Not Available No t Available tramadol 50 mg tablet TAKE 1 OR 2 TABLETS BY MOUTH TWICE A DAY NEEDED ONLY WITH ACETAMINO PHEN 1000 MG active Not Available Not Available No t Available sildenafil 100 mg tablet TAKE 1 TABLET BY MOUTH EVERY DAY NEEDED FOR ERECTILE DYSFUNCTI ON active Not Available Not Available No t Available amoxicillin 500 mg tablet TAKE 2 TABLETS NORW, THEN TAKE 1 TABLET BY MOUTH 3 TIMES A DAY 10/03 completed Not Available Not Available Not Available losartan 25 mg tablet TAKE 1 TABLET BY MOUTH EVERY DAY active Not Available Not Available No t Available tadalafil 20 mg tablet TAKE 1 TABLET BY MOUTH NEEDED, 30 MIN-1 HOUR BEFORE ANTICIPAT ED INTERCOUR SE active Not Available Not Available No t Available Vitals Date Recorded Body height Body mass index (BMI) Body weight Provider Name and Address Organization Details Last Updated DateTime 10/04/2023 177.8 cm 29.4 kg/m2 53132.44 g REAL Jolley [facility] 10/04/2023 09:11:52 Date Recorded Body height Body mass index (BMI) Body weight Provider Name and Address Organization Details Last Updated DateTime 03/07/2024 177.8 cm 29.4 kg/m2 77839.44 g JAIME [facility] 03/07/2024 09:29:32 Date Recorded Body height Body mass index (BMI) Body weight Provider Name and Address Organization Details Last Updated DateTime 05/06/2024 177.8 cm 29.4 kg/m2 03684.44 g Lupe Maharaj [facility] 05/06/2024 09:27:55 Date Recorded Body height Body mass index (BMI) Body weight Systolic blood pressure Diastolic blood pressure Provider Name and Address Organization Details Last Updated DateTime 06/20/2024 177.8 cm 29.4 kg/m2 22175.44 g 130 mm[Hg] 80 mm[Hg] Sumit Greenbergquez [facility] 13:35:08 Social History None recorded. Functional Status None recorded. Mental Status None recorded. Family History Nothing Reported. Medical History Condition Response Allergies/Hayfever N Coronary Artery Disease N Anxiety/Depression N Breathing or lung disorders N Emphysema N Nerve Disorders N Thyroid Problems N COPD N Pacemaker N Anemia N Kidney/Bladder Problems N Vascular Disease N Heart Trouble N Heart Attack (LA) N Gastrointestinal Disease N Cholesterol Y Diabetes N Autoimmune disease N Bleeding Disorder N Orthotics N Arthritis Y Seizures/Epilepsy N Blood Clot N AIDS/HIV N Congestive Heart Failure (CHF) N Acid Reflux (GERD) N Cancer N Stroke N Asthma N Peripheral Vascular Disease N Sleep Apnea N Hepatitis N Heart Disease N Rheumatoid Arthritis N Arrhythmia N Pulmonary Embolism N Headaches N Fibromyalgia N Hypertension Y Osteoporosis N Past Encounters Encounter ID Performer Location Encounter Start Date Encounter Closed Date Diagnosis/Indication Diagnosis SNOMED-CT Code Diagnosis ICD10 Code Diagnosis Note [id number] FRANK [facility] [address] [place] [address] 10/04/2023 09:00:29 10/04/2023 09:57:52 Arthritis of right knee [id number] 810558 M13.506 [id number] FRANK [facility] [address] [place] [address] 01/08/2024 09:07:03 02/01/2024 13:48:32 Osteoarthritis of right knee joint [id number] 84008 M17.11 [id number] FRANK [facility] [address] [place] [address] 03/07/2024 09:23:22 04/02/2024 10:09:03 Osteoarthritis of right knee joint 1304515049 70087 M17.11 [id number] Winifred Vásquez PA-C [facility] [address] [place] [address] 05/06/2024 09:01:53 05/21/2024 07:49:14 Osteoarthritis of right knee joint 6571697234 48358 M17.11 [id number] Winifred Morales PA-C JEFFREY Shola [facility] [address] [place] [address] 06/20/2024 13:24:56 07/03/2024 16:07:02 Osteoarthritis of right knee joint 6036385160 07885 M17.11 Health Concerns Section Related Observation LastModified by Organization Detai ls LastModified Time None Recorded Concern Status LastModified by Organization Details LastModified Time None Recorded Advance Directives Directive None Recorded Payers Encounter Date Sequence Insurance Name Policy Number Policy Patel Covered Member ID Patel Member ID Guarantor Name 10/04/2023 1 [facility] (MEDICARE REPLACEMENT/A DVANTAGE - PPO) [id number] Zachary Collado [id number] Zachary Collado 01/08/2024 1 [facility] (MEDICARE REPLACEMENT/A DVANTAGE - PPO) [id number] Zachary Collado [id number] Zachary Collado 03/07/2024 1 [facility] (MEDICARE REPLACEMENT/A DVANTAGE - PPO) [id number] Zachary Collado [id number] Zachary Collado 05/06/2024 1 [facility] (MEDICARE REPLACEMENT/A DVANTAGE - PPO) [id number] Zachary Collado [id number] Zachary Collado 06/20/2024 1 [facility] (MEDICARE REPLACEMENT/A DVANTAGE - PPO) [id number] Zachary Collado [id number] Zachary Collado Notes Date Note Type Note Provider Name and Address Organization Details Recorded Time text/html I am seeing the patient today under the supervision of {{ Elisabet#}} who was available but who did not see the patient. HPI: Patient presents today regarding their {{right* left bilateral}} knee. They have had difficulty up and down stairs sitting standing. Problems ambulating. Uprf-lyd-imakdwo medications are helping somewhat but not significantly. Pain is constant aching sometimes sharp pain with giving out sensations. Past family, medical, social history and review of systems has been reviewed, updated and is located in the patient? s chart. Examination: The patient is well appearing and in no apparent distress. Alert and oriented x3. Gait is symmetric. Examination of the {{right* left bilateral}} knee reveals no evidence of any edema, erythema, or warmth. No Deformity. Range of motion of the knee limited with mild discomfort at the end ranges. Mild effusion. Does have some tenderness to palpation about the joint line. Negative Jero? s. Calf is supple and nontender. Neurovascularly intact distally. Impression: {{right* left bilateral}} Knee osteoarthritis Plan: We discussed the role of conservative management including medications, physical therapy, injection and bracing. At this point the patient wishes to proceed with {{injection* prescription PT}} today. See procedure documentation. They will follow up with us as scheduled. All questions answered Destiny Mireles PA-C [address] [facility] [address], [place], [address], [facility] 10/04/2023 09:53:06 4 text/html I am seeing the patient today under the supervision of {{ Elisabet#}} who was available but who did not see the patient. HPI: Patient presents today regarding their {{right* left bilateral}} knee. They have had difficulty up and down stairs sitting standing. Problems ambulating. Nckz-nko-clrfaka medications are helping somewhat but not significantly. Pain is constant aching sometimes sharp pain with giving out sensations. Past family, medical, social history and review of systems has been reviewed, updated and is located in the patient? s chart. Examination: The patient is well appearing and in no apparent distress. Alert and oriented x3. Gait is symmetric. Examination of the {{right* left bilateral}} knee reveals no evidence of any edema, erythema, or warmth. No Deformity. Range of motion of the knee limited with mild discomfort at the end ranges. Mild effusion. Does have some tenderness to palpation about the joint line. Negative Jero? s. Calf is supple and nontender. Neurovascularly intact distally. Impression: {{right* left bilateral}} Knee osteoarthritis Plan: We discussed the role of conservative management including medications, physical therapy, injection and bracing. At this point the patient wishes to proceed with {{injection* prescription PT}} today. See procedure documentation. We will also submit for gel injection approval as he has had incomplete relief from cortisone of late. They will follow up with us as scheduled. All questions answered Destiny Mireles PA-C [address], [place], [address], [facility] 01/08/2024 09:59:11 4 text/html I am seeing the patient today under the supervision of {{Roberto Carlos lantiguachery [employer]}} who was available but who did not see the patient. HPI: 74-year-old male patient presents today for right knee recheck. He had Durolane viscosupplementation injection 03-07-24 that he reports provided him relief. Last cortisone injection right knee 01-08-24. He only reports pain occasionally with stairs. No pain today. He does report weakness, however, notes this is in both his lower extremities. He has a history of lumbar spine surgery and is scheduled to see Dr. Go on to discuss this further. Denies bladder or bowel incontinence. Past family, social history and review of systems has been reviewed, updated and is located in the patient? s chart. X-RAYS: Deferred this visit. IMPRESSION: {{Right* Left Bilateral}} knee - mild osteoarthritis, chondrocalcinosis PLAN: Findings reviewed. Discussed ongoing conservative treatment options. We schedule an appointment in June for repeat right knee cortisone injection andnew x-rays as he has not had updated x-rays since 2021. Discussed low-impact exercise and utilizing kjrq-xkq-maidulp topical and oral anti-inflammatories as needed for pain relief. All of his concerns are addressed and he understands and agrees with the plan. Speech recognition marketing planner software was used to create portions of this document. An attempt at proofreading has been made to minimize errors. Please call for corrections. Winifred Vásquez PA-C [address], [place], [address], [facility] 05/06/2024 10:11:16 5 text/html I am seeing the patient today under the supervision of {{Margaret Go#}} who was available but who did not see the patient. HPI: 74-year-old male patient presents today for right knee recheck. He had Durolane viscosupplementation injection 03-07-24 that he reports provided him excellent relief. Last cortisone injection right knee 01-08-24 provided good relief until last few weeks. He only reports pain occasionally with stairs. No pain today. He does report weakness, however, notes this is in both his lower extremities. He has a history of lumbar spine surgery and follows with Dr. Go for this. Denies bladder or bowel incontinence. Past family, social history and review of systems has been reviewed, updated and is located in the patient? s chart. X-RAYS: 4v x-rays of the right knee ordered, obtained and reviewed today at [facility] demonstrates mild chondrocalcinosis, mild medial and patellofemoral compartment narrowing. IMPRESSION: {{Right* Left Bilateral}} knee - mild osteoarthritis, chondrocalcinosis PLAN: Findings reviewed. Discussed ongoing conservative treatment options. He elected to proceed with right knee cortisone injection today. Discussed low-impact exercise and utilizing qxcn-rqd-rpvhgrv topical and oral anti-inflammatories as needed for pain relief. Follow up as symptoms dictate. All of his concerns are addressed and he understands and agrees with the plan. Speech recognition marketing planner software was used to create portions of this document. An attempt at proofreading has been made to minimize errors. Please call for corrections. Winifred Morales PA-C [address], [place], [address], [facility] 06/20/2024 13:50:28
--- OUTSIDE RECORDS SUMMARY | 2024-08-27 17:56 | XMS_ITS | Clinical Summary ---
Author Organization [facility] Address [address] [place] [address] Care Team Providers Care English Language Learner Teacher Name Role Phone Lobito Tadeo MD Primary Care Provider Allergies Active Allergy Reactions Criticality Noted Date Comments Penicillins Hives Medium 01/19/2006 Medications Medication Sig Dispensed Refills Start Date End Date Status Cod Liver Oil CAPS Take by mouth. 0 04/30/2017 Ac tive Aspirin 81 MG CAPS Take 1 tablet by mouth daily. 0 04/30/2017 Active cyanocobalamin 500 MCG tablet Take by mouth. 0 04/30/2017 Active Fish Oil-Cholecalcifero l (Fish Oil + D3) 2141-5536 MG-UNIT CAPS Take by mouth. 0 04/30/2017 Active cyclobenzaprine (FLEXERIL) 10 MG tablet Take 1 tablet (10 mg total) by mouth 3 (three) times a day as needed for muscle spasms. 30 tablet 0 01/13/2022 Active HYDROcodone-acetam inophen (NORCO) 5-325 MG per tablet Take 1 tablet by mouth every 6 (six) hours as needed for pain. 10 tablet 0 01/13/2022 Active sildenafil SR capsule 75 mg Take 1 capsule (75 mg total) by mouth as needed. Take 30 minutes prior to sex. 10 capsule 2 12/16/2022 Active sildenafil (VIAGRA) 100 MG tablet TAKE 1 TABLET BY MOUTH EVERY DAY NEEDED FOR ERECTILE DYSFUNCTION 3 tablet 13 12/26/2023 Active atorvastatin (LIPITOR) tablet 20 mg Take 1 tablet (20 mg total) by mouth daily. 90 tablet 1 01/11/2024 Active Active Problems Problem Noted Date Diagnosed Date Chronic midline low back pain without sciatica 0 12/26/2021 Pure hypercholesterolemia 12/26/2021 Arthritis of right knee 12/26/2021 Social History Tobacco Use Types Packs/Day Years Used Date Smoking Tobacco: Never Assessed Sex and Gender Information Value Date Recorded Sex Assigned at Not on file Gender Identity Not on file Sexual Orientation Not on file Job Start Date Occupation Industry Not on file Not on file Not on file Last Filed Vital Signs Vital Sign Reading Time Taken Comments Blood Pressure 132/83 12/16/2022 8:57 AM EDT Pulse 101 12/16/2022 8:57 AM EDT Temperature 37.1 ??C (98.8 ??F) 12/16/2022 8:57 AM ED T Respiratory Rate - - Oxygen Saturation 99% 12/16/2022 8:57 AM EDT Inhaled Oxygen Concentration - - Weight 93 kg (205 lb) 12/16/2022 8:57 AM EDT Height 157.5 cm (5' 2 ) 06/17/2022 8:19 AM EST Body Mass Index 37.49 06/17/2022 8:19 AM EST Plan of Treatment Health Maintenance Due Date Last Done Comments Hepatitis C Screening 1950 COVID-19 Vaccine (#1) 1949 BMI Counseling 1967 DTap / Tdap / Td (1 - Tdap) 1968 Colon Cancer Screening (Colonoscopy) 1994 Shingrix-Zoster Vaccine (1 of 2) 1999 Pneumococcal Vaccine (1 of 1 - PCV) 2014 Depression Screening 06/17/2023 06/17/2022 Fall Risk Assessment 06/17/2023 06/17/2022 Preventative Health Evaluation 06/17/2023 06/17/2022 Influenza Vaccine (#1) 2024 RSV Adult > 60+ Yrs or Pregn ant (1 - 1-dose 75+ series) 2024 Hepatitis B Vaccines Aged Out No long er eligible based on patient's age to complete this topic RSV Ped < 20 months Aged Out No longe r eligible based on patient's age to complete this topic Care Teams English Language Learner Teacher Relationship Specialty Start Date End Date Lobito Tadeo MD PCP - General Family Medicine 12/26/21
== END 2024-08-27 15:08 | disposition home or self-care (01) ==
LOC: HO.HNS 14:56
PROVIDERS: PCP Pediatrics; Visit Provider Physician Assistant
DX: M48.062 Spinal stenosis, lumbar region with neurogenic claudication (principal)
CPT/HCPCS: 99024

== ENCOUNTER 2024-10-06 13:15 | Outpatient (AMB) | payer OTHER, SELFPAY ==
--- NOTE | 2024-10-06 13:20 | A.SPINEOV_ITS ---
Intake Visit Reasons: 2nd post op Intake Note: Mr. Collado is here today for his 2nd post op. Application Release Manager Required: No Allergies Penicillins Adverse Reaction (Mild, Verified 10/06/24 13:28) Rash Assessment & Plan Assessment & Plan (1) Lumbar stenosis with neurogenic claudication: Code(s): M48.062 - Spinal stenosis, lumbar region with neurogenic claudication Category: Medical Plan Procedure: L3-L4, L4-5, L5-S1 Lumbar decompression Zachary is a pleasant 74-year-old male who comes in today for his 2nd postoperative visit after having an L3-S1 lumbar decompression completed by Dr. Sterling. To recap during his last office visit use still reporting some pain with prolonged ambulation. Thankfully, he reports that the bulk of his preoperative symptoms related to his low back pain and leg pain have resolved since I last saw him. Today, he did raise some concerns regarding right knee pain. He reports he previously had right-sided knee injections completed to address this in the past, but would like to find a new orthopedic provider. He asked if we know anyone who we could refer him to. I encouraged him to follow up with our colleague Dr. Jefferson in orthopedics. No new neurological deficits. The patient ambulates well and rises from a seated position without difficulty. His posterior incision site is well healed. There is no need for continued routine follow up with Zachary, he may be discharged as a patient. I will place a referral for him to follow up with Dr. Jefferson regarding his right knee pain. Nicholas Sterling MD,PhD [facility] Orders: Referrals Orthopedics Referral M25.561 - Pain in right knee Coding Level of Care Code Global (54309) Diagnoses Lumbar stenosis with neurogenic claudication M48.062
--- OUTSIDE RECORDS SUMMARY | 2024-10-06 14:39 | XMS_ITS | Clinical Summary ---
Author Organization [facility] [address] [facility] Address [address] [place] [address] Phone Care Team Providers Care Account Manager Relief Name Role Phone Charity Meeks MD Primary Care Provider [phone] Allergies Active Allergy Reactions Criticality Noted Date Comments Atorvastatin Pain Medium 12/18/2023 Medications celecoxib (CeleBREX) 200 mg capsule Take 1 capsule (200 mg total) by mouth 1 (one) time each day. 30 capsule 2 05/08/2024 Active tadalafiL (CIALIS) 20 mg tablet 04/03/2024 Active aspirin 81 mg capsule Take 1 tablet by mouth 1 (one) time each day. 04/30/2017 Active cyanocobalamin (VITAMIN B-12) 500 mcg tablet Take by mouth. 04/30/2017 Active omega3/dha/epa/ fish oil/vit D3 (FISH OIL-VIT D3 ORAL) Take by mouth. 04/30/2017 Active losartan (COZAAR) 25 mg tablet TAKE 1 TABLET BY MOUTH EVERY DAY 90 tablet 1 07/24/2024 Active losartan (COZAAR) 50 mg tablet TAKE 1 TABLET BY MOUTH EVERY DAY 90 tablet 1 08/04/2024 Active metoprolol succinate (TOPROL-XL) 50 mg 24 hr tablet TAKE 1 TABLET BY MOUTH EVERY DAY 90 tablet 1 08/04/2024 Active Active Problems Problem Noted Date Diagnosed Date Hypertension 11/19/2023 Spinal stenosis of lumbar re gion with neurogenic claudication 05/18/2021 Overweight (BMI 25.0-29.9) 09/14/2017 Erectile dysfunction 04/30/2017 Heart burn 04/30/2017 Hypercholesteremia 01/11/2006 Encounters Date Type Department Care Team Description 07/22/2024 10:00 AM EST Consult Adult Medicine [place] [address] [place] [address] Charity Meeks MD Preop cardiovascular exam (Primary Dx) from Last 3 Months Immunizations Name Administration [...] ed Within the last 3 months, donovan nichole many times did you visit the emergency [...] care for your loved ones. For example, director child abuse therapy or elderly care for an older adult? [...] AM EDT Office Visit Adult Medicine - [place] [address] [place] [address] Kaye Zelaya PA [address] [place] [address] Health Maintenance Due Date Last Done Comments DTaP,Tdap,and Td Vaccines (1 - Tdap) 1968 Pneumococcal Vaccine: 50+ Years (1 of 1 - PCV) 1999 Zoster Vaccines (1 of 2) 1999 Colorectal Cancer Screening: Stool Based Tests (FOBT/FIT) 05/12/2022 Falls Risk Assessment 05/12/2022 Medicare Annual Wellness Visit 05/12/2022 COVID-19 Vaccine (2023-2 5 season) 2024 06/07/2021, 09/21/2020, 08/24/2020 RSV Immunization Adult Patients (1 - 1-dose 75+ series) 2024 Influenza Vaccine (Season Ended) 2025 05/04/2016 Depression Screening 07/15/2025 07/15/2024 Social Influencers of [...] age to complete this topic Meningococcal B Vaccine Aged Out No l onger eligible based on patient's age to complete [...] K/mcL LAB HEMETOLOGY METHOD 07/22/2024 12:18 PM [facility] RBC 4.90 4.50 - 5.50 M/mcL LAB HEMETOLOGY METHOD 07/22/2024 12:18 PM [facility] Hemoglobin 14.4 13.5 - 17.5 g/dL LAB HEMETOLOGY METHOD 07/22/2024 12:18 PM [facility] Hematocrit 43.6 42.0 - 54.0 % LAB HEMETOLOGY METHOD 07/22/2024 12:18 PM [facility] MCV 89.5 79.0 - 98.0 FL LAB HEMETOLOGY METHOD 07/22/2024 12:18 PM [facility] MCH 29.6 27.0 - 32.0 pcg LAB HEMETOLOGY METHOD 07/22/2024 12:18 PM [facility] MCHC 33.0 32.0 - 37.0 g/dL LAB HEMETOLOGY METHOD 07/22/2024 12:18 PM [facility] RDW 13.2 11.0 - 15.0 % LAB HEMETOLOGY METHOD 07/22/2024 12:18 PM [facility] Platelets 269 130 - 400 K/mcL LAB HEMETOLOGY METHOD 07/22/2024 12:18 PM [facility] MPV 9.5 7.0 - 11.0 FL LAB HEMETOLOGY METHOD 07/22/2024 12:18 PM [facility] NRBC 0.0 <1.0 % LAB HEMETOLOGY METHOD 07/22/2024 12:18 PM [facility] NRBC Absolute 0.00 <0.10 K/mcL LAB HEMETOLOGY METHOD 07/22/2024 12:18 PM [facility] Neutrophils Relative 64.0 % LAB HEMETOLOGY METHOD 07/22/2024 12:18 PM [facility] Lymphocytes Relative 24.9 % LAB HEMETOLOGY METHOD 07/22/2024 12:18 PM [facility] Monocytes Relative 9.2 % LAB HEMETOLOGY METHOD 07/22/2024 12:18 PM [facility] Eosinophils Relative 0.8 % LAB HEMETOLOGY METHOD 07/22/2024 12:18 PM [facility] Basophils Relative 0.8 % LAB HEMETOLOGY METHOD 07/22/2024 12:18 PM [facility] Immature Granulocytes Relative 0.3 % LAB HEMETOLOGY METHOD 07/22/2024 12:18 PM [facility] Neutrophils Absolute 4.04 1.50 - 7.00 K/mcL LAB HEMETOLOGY METHOD 07/22/2024 12:18 PM EST [facility] Lymphocytes Absolute 1.57 1.00 - 5.00 K/mcL LAB HEMETOLOGY METHOD 07/22/2024 12:18 PM [facility] Monocytes Absolute 0.58 0.20 - 1.00 K/mcL LAB HEMETOLOGY METHOD 07/22/2024 12:18 PM [facility] Eosinophils Absolute 0.05 0.00 - 0.50 K/[facility] LAB HEMETOLOGY METHOD 07/22/2024 12:18 PM [facility] Basophils Absolute 0.05 0.00 - 0.20 K/[facility] LAB HEMETOLOGY METHOD 07/22/2024 12:18 PM [facility] Immature Granulocytes Absolute 0.02 0.00 - 0.03 K/[facility] LAB HEMETOLOGY METHOD 07/22/2024 12:18 PM [facility] Blood Venous blood specimen / Unknown Venipuncture / Unknown 07/22/2024 10:57 AM EST 07/22/2024 10:57 AM EST C Rishi Meeks MD LAB BLOOD ORDERABLES Final Res ult [facility] [address] [place] [address], * (ABNORMAL) Comprehensive metabolic panel (07/22/2024 10:57 AM EST) Sodium 136 133 - 145 mmol/L LAB CHEMISTRY METHOD 07/22/2024 12:47 PM EST [facility] Potassium 4.6 3.5 - 5.5 mmol/L LAB CHEMISTRY METHOD 07/22/2024 12:47 PM [facility] Chloride 104 96 - 110 mmol/L LAB CHEMISTRY METHOD 07/22/2024 12:47 PM [facility] CO2 28 21 - 32 mmol/L LAB CHEMISTRY METHOD 07/22/2024 12:47 PM [facility] Anion Gap 4 3 - 11 LAB CHEMISTRY METHOD 07/22/2024 12:47 PM [facility] Glucose 106(H) 70 - 100 mg/dL LAB CHEMISTRY METHOD 07/22/2024 12:47 PM [facility] BUN 23 5 - 25 mg/dL LAB CHEMISTRY METHOD 07/22/2024 12:47 PM [facility] Creatinine 1.25 0.70 - 1.30 mg/dL LAB CHEMISTRY METHOD 07/22/2024 12:47 PM [facility] eGFR 60 >=60 mL/min/1. 73m2 LAB CHEMISTRY METHOD 07/22/2024 12:47 PM [facility] Comment:Calculation based on the??Chronic Kidney Disease Epidemiology Collaboration (CKD-EPI) equation refit??without adjustment for race. BUN/Creatinine Ratio 18.4 LAB CHEMISTRY METHOD 07/22/2024 12:47 PM [facility] Calcium 10.3 8.5 - 10.5 mg/dL LAB CHEMISTRY METHOD 07/22/2024 12:47 PM [facility] AST (SGOT) 17 10 - 42 unit/L LAB CHEMISTRY METHOD 07/22/2024 12:47 PM [facility] ALT (SGPT) 37 10 - 60 unit/L LAB CHEMISTRY METHOD 07/22/2024 12:47 PM [facility] Alkaline Phosphatase 80 42 - 121 unit/L LAB CHEMISTRY METHOD 07/22/2024 12:47 PM [facility] Total Protein 7.5 6.0 - 8.0 g/dL LAB CHEMISTRY METHOD 07/22/2024 12:47 PM [facility] Albumin 4.2 3.2 - 5.0 g/dL LAB CHEMISTRY METHOD 07/22/2024 12:47 PM EST [facility] Total Bilirubin 0.5 0.0 - 1.4 mg/dL LAB CHEMISTRY METHOD 07/22/2024 12:47 PM EST [facility] Blood Venous blood specimen / Unknown Venipuncture / Unknown 07/22/2024 10:57 AM EST 07/22/2024 10:57 AM EST Chartiy Meeks MD LAB BLOOD ORDERABLES Final Res ult [facility] [address] [place] [address], [place] [phone] * ECG 12 lead (07/22/2024 10:56 AM EST) Charity Shine MD - 07/22/2024 10:56 AM EST Sinus tachycardia Charity Meeks MD ECG ORDERABLES Final Result * Abdominal Aortic Aneurysm Screen (02/09/2021) Pathologist [facility] Abdominal Aortic Aneurysm (AAA) Screening ABSTRACTED Anatomical Region Laterality Modality Other Historical Delfina [facility] MAINTENANCE Final Result * (ABNORMAL) Lipid panel (10/06/2020) [facility] LDL/HDL Ratio 4 0 - 4 Triglycerides 194(A) 0 - 150 mg/dL Cholesterol 204(A) 0 - 200 mg/dL HDL 58 >=40 mg/dL LDL Cholesterol 108(A) 0 - 100 mg/dL Blood Venous blood specimen / Unknown Historical Delfina MORE[facility] LAB BLOOD ORDERABLES Cookie l Result * Colonoscopy (04/30/2017) [facility] Colonoscopy no interpretation , abstracted Anatomical Region Laterality Modality Other Historical Delfina [facility]INTENANCE Final Result * Hepatitis C Screening (10/26/2015) [facility] Hepatitis C Screening ABSTRACTED Historical Provider HEALTH MAINTENANCE Final Result from Last 3 Months or Most Recently Relevant to Health Maintenance Insurance [employer] Care Teams Account Manager Relief Relationship Specialty Start Date End Date Charity Meeks MD [address] [place] [address] PCP - General Internal Medicine 05/30/24
--- OUTSIDE RECORDS SUMMARY | 2024-10-06 14:39 | XMS_ITS | Clinical Summary ---
Author Organization [facility] Address [address] [place] [address] Care Team Providers Care Rn Clinical Name Role Phone Lobito Tadeo MD Primary [...] Fish Oil-Cholecalcifero l (Fish Oil + D3) [id number] MG-UNIT CAPS Take by mouth. 0 04/30/2017 [...] age to complete this topic Care Teams Rn Clinical Relationship Specialty Start Date End Date Lobito Tadeo MD PCP - General Family Medicine 12/26/21
--- OUTSIDE RECORDS SUMMARY | 2024-10-06 14:39 | XMS_ITS ---
Author Name [facility] Organization Unknown Encounters Encounter Type Encounter Reason Primary Diagnosis Location Date Ambulatory [facility] 03/14/2024 Care Team Organization Name Specialty Phone Email Start Date End Da te [facility] 2024
== END 2024-10-06 14:36 | disposition home or self-care (01) ==
LOC: HO.HNS 13:16
PROVIDERS: PCP Pediatrics; Visit Provider Physician Assistant
DX: M48.062 Spinal stenosis, lumbar region with neurogenic claudication (principal)
CPT/HCPCS: 99024

== ENCOUNTER → 2024-10-06 13:15 | Outpatient (BNVA) | payer OTHER, SELFPAY | PROVIDERS: PCP Pediatrics; Visit Provider Physician Assistant ==

== ENCOUNTER 2024-10-20 13:13 | Outpatient (REF) | payer OTHER, SELFPAY ==
--- OUTSIDE RECORDS SUMMARY | 2024-10-20 13:18 | XMS_ITS | Clinical Summary ---
Author Organization [facility] [address] [facility] Address [address] [place] [address] Phone Care Team Providers Care Continuous Improvement Coordinator Name Role Phone Charity Meeks MD Primary Care Provider [phone] Allergies Active Allergy Reactions Criticality Noted Date [...] dysfunction 04/30/2017 Heart burn 04/30/2017 Hypercholesteremia 01/11/2006 Immunizations Name Administration Dates Next Due Influenza, [...] Record ed Within the last 3 months, ho dionisio many times did you visit the emergency [...] care for your loved ones. For example, children teacher or elderly care for an older adult? [...] AM EDT Office Visit Adult Medicine - [place] [address] [place] [address] Kaye Zelaya PA [address] [place] [address] Health Maintenance Due Date Last Done Comments DTaP,Tdap,and Td Vaccines (1 - Tdap) 1968 Pneumococcal Vaccine: 50+ Years (1 of 1 - PCV) 1999 Zoster Vaccines (1 of 2) 1999 Colorectal Cancer Screening: Stool Based Tests (FOBT/FIT) 05/12/2022 Falls Risk Assessment 05/12/2022 Medicare Annual Wellness Visit 05/12/2022 COVID-19 Vaccine (4 - 2023-2 5 season) 2024 06/07/2021, 09/21/2020, 08/24/2020 RSV [...] Procedure Name Priority Date/Time Associated Diagnosis Comments COMPREHENSIVE METABOLIC PANEL Routine 07/22/2024 10:57 AM EST Pre-operative examination ABDOMINAL AORTIC ANEURYSM SCRREN Routine 02/09/2021 LIPID PANEL Routine 10/06/2020 COLONOSCOPY Routine 04/30/2017 HEPATITIS C SCREENING Routine 10/26/2015 from Last 3 Months or Most Recently Relevant to Health Maintenance Results * (ABNORMAL) Comprehensive metabolic panel (07/22/2024 10:57 AM EST) Sodium 136 133 - 145 mmol/L LAB CHEMISTRY METHOD 07/22/2024 12:[address] [facility] Potassium 4.6 3.5 - 5.5 mmol/L LAB CHEMISTRY METHOD 07/22/2024 12:[address] [facility] Chloride 104 96 - 110 mmol/L LAB CHEMISTRY METHOD 07/22/2024 12:[address] [facility] CO2 28 21 - 32 mmol/L LAB CHEMISTRY METHOD 07/22/2024 12:[address] [facility] Anion Gap 4 3 - 11 LAB CHEMISTRY METHOD 07/22/2024 12:[address] [facility] Glucose 106(H) 70 - 100 mg/dL LAB CHEMISTRY METHOD 07/22/2024 12:[address] [facility] BUN 23 5 - 25 mg/dL LAB CHEMISTRY METHOD 07/22/2024 12:[address] [facility] Creatinine 1.25 0.70 - 1.30 mg/dL LAB CHEMISTRY METHOD 07/22/2024 12:[address] [facility] eGFR 60 >=60 mL/min/1. 73m2 LAB CHEMISTRY METHOD 07/22/2024 12:[address] [facility] Comment:Calculation based on the??Chronic Kidney Disease Epidemiology Collaboration (CKD-EPI) equation refit??without adjustment for race. BUN/Creatinine Ratio 18.4 LAB CHEMISTRY METHOD 07/22/2024 12:[address] [facility] Calcium 10.3 8.5 - 10.5 mg/dL LAB CHEMISTRY METHOD 07/22/2024 12:[address] [facility] AST (SGOT) 17 10 - 42 unit/L LAB CHEMISTRY METHOD 07/22/2024 12:[address] [facility] ALT (SGPT) 37 10 - 60 unit/L LAB CHEMISTRY METHOD 07/22/2024 12:[address] [facility] Alkaline Phosphatase 80 42 - 121 unit/L LAB CHEMISTRY METHOD 07/22/2024 12:[address] [facility] Total Protein 7.5 6.0 - 8.0 g/dL LAB CHEMISTRY METHOD 07/22/2024 12:[address] [facility] Albumin 4.2 3.2 - 5.0 g/dL LAB CHEMISTRY METHOD 07/22/2024 12:[address] [facility] Total Bilirubin 0.5 0.0 - 1.4 mg/dL LAB CHEMISTRY METHOD 07/22/2024 12:[address] [facility] Blood Venous blood specimen / Unknown Venipuncture / Unknown 07/22/2024 10:57 AM EST 07/22/2024 10:57 AM EST Charity Meeks MD LAB BLOOD ORDERABLES Final Res ult [facility] [address] [place] [address], [place] [phone] * Abdominal Aortic Aneurysm Screen (02/09/2021) Pathologist [facility] Abdominal Aortic Aneurysm (AAA) Screening ABSTRACTED Anatomical Region Laterality Modality Other Jacob Mathis MD HEALTH MAINTENANCE Final Result * (ABNORMAL) Lipid panel (10/06/2020) Pathologist [facility] LDL/HDL Ratio 4 0 - 4 Triglycerides 194(A) 0 - 150 mg/dL Cholesterol 204(A) 0 - 200 mg/dL HDL 58 >=40 mg/dL LDL Cholesterol 108(A) 0 - 100 mg/dL Blood Venous blood specimen / Unknown Historical Provider LAB BLOOD ORDERABLES Cookie l Result * Colonoscopy (04/30/2017) Colonoscopy no interpretation , abstracted Anatomical Region Laterality Modality Other Historical Provider HEALTH MAINTENANCE Final Result * Hepatitis C Screening (10/26/2015) Hepatitis C Screening ABSTRACTED [facility] Provider HEALTH MAINTENANCE Final Result from Last 3 Months or Most Recently Relevant to Health Maintenance Insurance [employer] Care Teams Continuous Improvement Coordinator Relationship Specialty Start Date End Date Charity Meeks MD [address] [place] [address] PCP - General Internal Medicine 05/30/24
--- OUTSIDE RECORDS SUMMARY | 2024-10-20 13:18 | XMS_ITS | Data Portability ---
Author Organization [place] - [facility], [facility] Address [address] [place] [address] Care Team Providers Care Custom Decorating Consultant Name Role Phone [facility] Primary Care Provi evan Assessment Encounter Date Assessment Date Assessment LastModified by Organization Details LastModified Time 03/07/2024 03/07/2024 I am seeing the patient today under the supervision of who was available but who did not see the patient. Please see procedure documentation for further information about the injection performed today. [email or web address] Not available 03/07/2024 07:25:10 Plan of Treatment Reminders Order Date Submit Date Provider Last Modified By Organization Details Last Modified Time Details Appointments RECHECK 15 2024 08:45A M José Antonio Alcaraz PA-C Not available Not available Not available Lab None recorded . Referral None recorded . Procedures None recorded . Surgeries None recorded . Imaging XR, knee, 4 or more view - rm 312 right knee 4v 2024 025 [facility], [address] [facility] [address], [facility] [address], [place], [address], 07/03/2024 16:07:02 Medication Orders meloxica m 15 mg tablet 2023 024 [id number], [address] [place], [address], 10/04/2023 11:09:28 Patient TargetsNo targets recorded. Patient Instructions Encounter Date Encounter Id Patient Instructions Last Modified By Organization Details Last Modified Time 03/07/2024 [id number] You have been provided with a viscosupplementation [...] the injection. This is called a ? f lare? . To help minimize the chances of this, please see the post-injection instructions above. There is a less than 1% chance of an infection. If you notice any signs of infection (redness, warmth, drainage, fever greater than 100 degrees) please call our office or contact us through the portal ZAN. [email or web address] Not available 03/07/2024 07:25:14 Reason for Referral None Reported. Results Created Date Observation Date Name Description Value Unit Range Abnormal Flag Note LastModifiedBy Organization Detail LastModifiedTime 06/20/19 25 06/20/2024 XR, knee, 4 or more view [email or web address]:/ [email or web address] ?Encry pted=s hAaTro YD8dLq bEUv6g %2BXZw aYqtaq 0bqfl% 2Fg9IQ a4ajBk vP9nXo QUaueC m3YtLR FvZlgJ JJ8Chappells HZtai3 2o8878 AC0Kqb 3uFVKO kKiQtr F INTERFACE [facility] Office [address] [facility] [address], [place], [address], 06/20/2024 13:44:47 06/20/19 25 06/20/2024 XR, knee, 4 or more view [email or web address]:/ [email or web address] ?Encry pted=s hAaTro YD8dLq bEUv6g %2BXZw aYqtaq 0bqfl% 2Fg9IQ a4ajBk vP9nXo QUaueC m3YtLR FvZlgJ JJ8mAn HZtai3 4t0517 AC0Kqb 3uFVKO kKiQtr MwF INTERFACE [facility] [address], [place], [address], 06/20/2024 13:44:49 Result Notes None recorded. Problems Name Problem SNOMED Code Status Onset Date Resolution Date Notes Provider Name and Address Organization Details Recorded Time Osteoarthri tis of right knee joint [id number] 00 Active 2023 Winifred Hays i, PA-C [address], [place], [address], [facility] 4 10:10:30 Problem Notes None recorded. Procedures Surgical History Date Name Laterality Status Provider Name and Address Organization Details Recorded Time 5 Sports Knee 4&1 completed Winifred Morales PA-C [address], [place], [address], [facility] 06/20/2024 10:32:57 4 Durolane Knee Injection completed José Antonio Alcaraz PA-C [address], [place], [address], [facility] 03/07/2024 07:25:21 4 Sports Knee 4&1 completed Destiny Mireles PA-C [address], [place], [address], [facility] 01/08/2024 09:17:47 4 Sports Knee 4&1 completed Destiny Mireles PA-C [address], [place], [address], [facility] 10/04/2023 09:52:50 Imaging Results Imaging Date Name Status LastModified by Organiz ation Details LastModified Time 06/20/2024 XR, knee, 4 or more view completed INTERFACE [facility] [address], [place], [address], 06/20/2024 13:44:47 06/20/2024 XR, knee, 4 or more view completed INTERFACE [facility] Office [address], [place], [address], 06/20/2024 13:44:49 Procedure Notes None recorded. Medical [...] EVERY DAY BY ORAL ROUTE AFTER MEAL(S). 2024 active Not Available Not Available Not Avai [...] Updated DateTime 10/04/2023 177.8 cm 29.4 kg/m2 88313.44 g REAL PEÑA [place] - [facility] 10/04/2023 09:11:52 Date Recorded Body height Body mass index (BMI) Body weight Provider Name and Address Organization Details Last Updated DateTime 03/07/2024 177.8 cm 29.4 kg/m2 50540.44 g JAIME YOUNG [place] [facility] 03/07/2024 09:29:32 Date Recorded Body height Body mass index (BMI) Body weight Provider Name and Address Organization Details Last Updated DateTime 05/06/2024 177.8 cm 29.4 kg/m2 46490.44 g Lupe Maharaj [facility] 05/06/2024 09:27:55 Date Recorded Body height Body mass index (BMI) Body weight Systolic blood pressure Diastolic blood pressure Provider Name and Address Organization Details Last Updated DateTime 06/20/2024 177.8 cm 29.4 kg/m2 19165.44 g 130 mm[Hg] 80 mm[Hg] Sumit Luz [facility] 13:35:08 Social History None recorded. Functional Status None recorded. Mental Status None recorded. Family History Nothing Reported. Medical History Condition Response Allergies/Hayfever N Coronary Artery Disease N Anxiety/Depression N Breathing or lung disorders N Emphysema N Nerve Disorders N Thyroid Problems N COPD N Pacemaker N Anemia N Kidney/Bladder Problems N Vascular Disease N Heart Trouble N Heart Attack (NC) N Gastrointestinal Disease N Cholesterol Y Diabetes [...] SNOMED-CT Code Diagnosis ICD10 Code Diagnosis Note [id number] FR[facility] [address] [place] [address] 10/04/2023 09:00:29 10/04/2023 09:57:52 Arthritis of right knee 1403346778 937995 M13.652 [id number] FRANK [place] [address] [place] [address] 01/08/2024 09:07:03 02/01/2024 13:48:32 Osteoarthritis of right knee joint 9178778126 85709 M17.11 [id number] José Antonio Alcaraz PA-C [facility] [address] [place] [address] 03/07/2024 09:23:22 04/02/2024 10:09:03 Osteoarthritis of right knee joint 5564881456 98189 M17.11 [id number] Winifred Vásquez PA-C [place] [address] [place] [address] 05/06/2024 09:01:53 05/21/2024 07:49:14 Osteoarthritis of right knee joint 7319557856 52320 M17.11 [id number] Winifred Morales PA-C [facility] - [facility] [address] [place] [address] 06/20/2024 13:24:56 07/03/2024 16:07:02 Osteoarthritis of right knee joint 0069529479 52128 M17.11 Health Concerns Section Related Observation LastModified by Organization Detai ls LastModified Time None Recorded Concern Status LastModified by Organization Details LastModified Time None Recorded Advance Directives Directive None Recorded Payers Encounter Date Sequence Insurance Name Policy Number Policy Patel Covered Member ID Patel Member ID Guarantor Name 10/04/2023 1 [facility] (MEDICARE REPLACEMENT/A DVANTAGE - PPO) [id number] Zachary Collado [id number] Zachary Collado 01/08/2024 1 [facility] (MEDICARE REPLACEMENT/A DVANTAGE - PPO) [id number] Zachary Collado [id number] Zachary Collado 03/07/2024 1 [facility] (MEDICARE REPLACEMENT/A DVANTAGE - PPO) [id number] Zachary Collado [id number] Zachary Collado 05/06/2024 1 [facility] (MEDICARE REPLACEMENT/A DVANTAGE - PPO) [id number] Zachary Collado [id number] Zachary Collado 06/20/2024 1 [facility] (MEDICARE REPLACEMENT/A DVANTAGE - PPO) [id number] Zachary Collado [id number] Zachary Collado Notes Date Note Type Note Provider Name and Address Organization Details Recorded Time text/html I am seeing the patient today under the supervision of Dr. Kirt Bhandari#}} who was available but who did not see the patient. HPI: Patient presents today regarding their {{right* left bilateral}} knee. They have had difficulty up and down stairs sitting standing. Problems ambulating. Yvue-wtf-luqvbxp medications are helping somewhat but not significantly. [...] palpation about the joint line. Negative Jero? s . Calf is supple and nontender. Neurovascularly intact distally. Impression: {{right* left bilateral}} Knee osteoarthritis Plan: We discussed the role of conservative management including medications, physical therapy, injection and bracing. At this point the patient wishes to proceed with {{injection* prescription PT}} today. See procedure documentation. They will follow up with us as scheduled. All questions answered Destiny Mireles PA-C [address] [place] [address] Suite [facility], [place], [address], [facility] 10/04/2023 09:53:06 4 text/html I am seeing the patient today under the supervision of {{ Elisabet#}} who was available but who did not see the patient. HPI: Patient presents today regarding their {{right* left bilateral}} knee. They have had difficulty up and down stairs sitting standing. Problems ambulating. Gsge-utt-gdiwyxl medications are helping somewhat but not significantly. [...] palpation about the joint line. Negative Jero? s . Calf is supple and nontender. Neurovascularly intact [...] scheduled. All questions answered Destiny Mireles PA-C [address] [place] [address] [address], [place], [address], [facility] - [facility] 01/08/2024 09:59:11 4 text/html I am seeing the patient today under the supervision of {{Roberto Carlos xiao [facility]}} who was available but who did [...] since 2021. Discussed low-impact exercise and utilizing ileq-gzj-hprsdtc topical and oral anti-inflammatories as needed for pain relief. All of his concerns are addressed and he understands and agrees with the plan. Speech recognition powertrain design engineer software was used to create portions of this document. An attempt at proofreading has been made to minimize errors. Please call for corrections. Winifred Vásquez PA-C [address], [place], [address], [facility] 05/06/2024 10:11:16 5 text/html I am seeing the patient today under the supervision of DrJason {{Margaret Go#}} who was available but who [...] knee ordered, obtained and reviewed today at [facility] demonstrates mild chondrocalcinosis, mild medial and patellofemoral compartment narrowing. IMPRESSION: {{Right* Left Bilateral}} knee - mild osteoarthritis, chondrocalcinosis PLAN: Findings reviewed. Discussed ongoing conservative treatment options. He elected to proceed with right knee cortisone injection today. Discussed low-impact exercise and utilizing xean-wpc-ofmcxkt topical and oral anti-inflammatories as needed for pain relief. Follow up as symptoms dictate. All of his concerns are addressed and he understands and agrees with the plan. Speech recognition powertrain design engineer software was used to create portions of this document. An attempt at proofreading has been made to minimize errors. Please call for corrections. Winifred Morales PA-C [address], [place], [address], [facility] 06/20/2024 13:50:28
--- OUTSIDE RECORDS SUMMARY | 2024-10-20 13:18 | XMS_ITS | Clinical Summary ---
Author Organization [facility] Address [address] [place] [address] Care Team Providers Care Government Guard Name Role Phone Lobito Tadeo MD Primary [...] Fish Oil-Cholecalcifero l (Fish Oil + D3) 7108-2075 MG-UNIT CAPS Take by mouth. 0 04/30/2017 [...] age to complete this topic Care Teams Government Guard Relationship Specialty Start Date End Date Lobito Tadeo MD PCP - General Family Medicine 12/26/21
== END 2024-10-20 13:14 | disposition home or self-care (01) ==
LOC: HO.HOSX 13:13
PROVIDERS: Visit Provider Physician Assistant
DX: Z13.89 Encounter for screening for other disorder (principal)

== ENCOUNTER 2024-10-22 14:51 | Outpatient (REF) | payer OTHER, SELFPAY ==
--- NOTE | ~2024-10-22 | XR_ITS ---
EXAMINATION: XR LUMBAR SPINE 4 OR MORE VIEWS HISTORY: M48.062 - Spinal stenosis, lumbar region with neurogenic claudication COMPARISON: There are no prior studies for comparison. FINDINGS: AP, and neutral, flexion, and extension lateral views of the lumbar spine are submitted. Osseous mineralization is normal. Five nonrib-bearing lumbar vertebral bodies are identified, maintaining normal height without evidence of fracture. There is slight spondylolisthesis of L5 on S1 which does not change with flexion or extension. There is moderate degenerative disc disease with disc space narrowing and osteophyte formation. There is osteoarthritis of the facet joints. The visualized paraspinal soft tissues are unremarkable. XR/XR lumbar spine 4V min IMPRESSION: Moderate degenerative disc disease. Slight spondylolisthesis of L5 on S1 which does not change with flexion or extension. Electronically signed by: David Dhaliwal MD 10/22/2024 03:19 PM EDT
--- OUTSIDE RECORDS SUMMARY | 2024-10-22 14:58 | XMS_ITS | Clinical Summary ---
Author Organization [facility] Address [address] [place] [address] Care Team Providers Care Microscopist Name Role Phone Lobito Tadeo MD Primary [...] Fish Oil-Cholecalcifero l (Fish Oil + D3) 3053-3237 MG-UNIT CAPS Take by mouth. 0 04/30/2017 [...] age to complete this topic Care Teams Microscopist Relationship Specialty Start Date End Date Lobito Tadeo MD PCP - General Family Medicine 12/26/21
--- OUTSIDE RECORDS SUMMARY | 2024-10-22 14:58 | XMS_ITS | Clinical Summary ---
Author Organization [facility] [address] [facility] Address [address] [place] [address] Phone Care Team Providers Care Clinical Staff Educator Name Role Phone Charity Meeks MD Primary Care Provider [phone] Allergies Active Allergy Reactions Criticality Noted Date Comments Atorvastatin Pain Medium 12/18/2023 Medications celecoxib (CeleBREX) 200 mg capsule Take 1 capsule (200 mg total) by mouth 1 (one) time each day. 30 capsule 2 05/08/20 24 Active aspirin 81 mg capsule Take 1 tablet by mouth 1 (one) time each day. 04/30/20 17 Active cyanocobalamin (VITAMIN B-12) 500 mcg tablet Take by mouth. 04/30/20 17 Active omega3/dha/epa /fish oil/vit D3 (FISH OIL-VIT D3 ORAL) Take by mouth. 04/30/20 17 Active losartan (COZAAR) 25 mg tablet TAKE 1 TABLET BY MOUTH EVERY DAY 90 tablet 1 07/24/19 25 Active losartan (COZAAR) 50 mg tablet TAKE 1 TABLET BY MOUTH EVERY DAY 90 tablet 1 08/05/19 25 Active metoprolol succinate (TOPROL-XL) 50 mg 24 hr tablet TAKE 1 TABLET BY MOUTH EVERY DAY 90 tablet 1 08/05/19 25 Active tadalafiL (CIALIS) 20 mg tablet TAKE 1 TABLET BY MOUTH NEEDED, 30 MIN-1 HOUR BEFORE ANTICIPATED INTERCOURSE 6 tablet 1 10/21/19 25 Active tadalafiL (CIALIS) 20 mg tablet 04/03/20 24 025 Discontinued Active Problems Problem Noted Date Diagnosed [...] ed Within the last 3 months, ho w many times did you visit the [...] care for your loved ones. For example, child and family services worker or elderly care for an older adult? [...] 11:00 AM EDT Office Visit Adult Medicine [address] [address] Kaye Zelaya PA [address] [place] [address] Health Maintenance Due Date Last Done Comments [...] SCRREN Routine 02/09/2021 LIPID PANEL Routine 10/06/2020 HM COLONOSCOPY Routine 04/30/2017 HEPATITIS C SCREENING Routine 10/26/2015 from Last 3 Months or Most Recently Relevant to Health Maintenance Results * (ABNORMAL) Comprehensive metabolic panel (07/22/2024 10:57 AM EST) Sodium 136 133 - 145 mmol/L LAB CHEMISTRY METHOD 07/22/2024 12:47 PM [facility] Potassium 4.6 3.5 - 5.5 mmol/L LAB CHEMISTRY METHOD 07/22/2024 12:47 PM [facility] Chloride 104 96 - 110 mmol/L LAB CHEMISTRY METHOD 07/22/2024 12:47 PM [facility] CO2 28 21 - 32 mmol/L LAB CHEMISTRY METHOD 07/22/2024 12:47 PM [facility] Anion Gap 4 3 - 11 LAB CHEMISTRY METHOD 07/22/2024 12:47 PM [facility] Glucose 106(H) 70 - 100 mg/dL LAB CHEMISTRY METHOD 07/22/2024 12:47 PM [facility] BUN 23 5 - 25 mg/dL LAB CHEMISTRY METHOD 07/22/2024 12:47 PM [facility] Creatinine 1.25 0.70 - 1.30 mg/dL LAB CHEMISTRY METHOD 07/22/2024 12:47 PM [facility] eGFR 60 >=60 mL/min/1. 73m2 LAB CHEMISTRY METHOD 07/22/2024 12:47 PM [facility] Comment:Calculation based on the??Chronic Kidney Disease Epidemiology Collaboration (CKD-EPI) equation refit??without adjustment for race. BUN/Creatinine Ratio 18.4 LAB CHEMISTRY METHOD 07/22/2024 12:47 PM [facility] Calcium 10.3 8.5 - 10.5 mg/dL LAB CHEMISTRY METHOD 07/22/2024 12:47 PM [facility] AST (SGOT) 17 10 - 42 unit/L LAB CHEMISTRY METHOD 07/22/2024 12:47 PM [facility] ALT (SGPT) 37 10 - 60 unit/L LAB CHEMISTRY METHOD 07/22/2024 12:47 PM [facility] Alkaline Phosphatase 80 42 - 121 unit/L LAB CHEMISTRY METHOD 07/22/2024 12:47 PM [facility] Total Protein 7.5 6.0 - 8.0 g/dL LAB CHEMISTRY METHOD 07/22/2024 12:47 PM [facility] Albumin 4.2 3.2 - 5.0 g/dL LAB CHEMISTRY METHOD 07/22/2024 12:47 PM [facility] Total Bilirubin 0.5 0.0 - 1.4 mg/dL LAB CHEMISTRY METHOD 07/22/2024 12:47 PM [facility] Blood Venous blood specimen / Unknown Venipuncture / Unknown 07/22/2024 10:57 AM EST 07/22/2024 10:57 AM EST us C Rishi Meeks MD LAB BLOOD ORDERABLES Final Res ult [facility] [address] [place] [address], [place] [phone] * Abdominal Aortic Aneurysm Screen (02/09/2021) Abdominal Aortic Aneurysm (AAA) Screening ABSTRACTED Anatomical Region Laterality Modality Other us Historical Provider HEALTH MAINTENANCE Final Result * (ABNORMAL) Lipid panel (10/06/2020) LDL/HDL Ratio 4 0 - 4 Triglycerides 194(A) 0 - 150 mg/dL Cholesterol 204(A) 0 - 200 mg/dL HDL 58 >=40 mg/dL LDL Cholesterol 108(A) 0 - 100 mg/dL Blood Venous blood specimen / Unknown Result [facility] Provider LAB BLOOD ORDERABLES Cookie l Result * Colonoscopy (04/30/2017) Pathologist [facility] Colonoscopy no interpretation , abstracted Anatomical Region Laterality Modality Other Result [facility] Provider HEALTH MAINTENANCE Final Result * Hepatitis C Screening (10/26/2015) Pathologist [facility] Hepatitis C Screening ABSTRACTED Result [facility] Provider HEALTH MAINTENANCE Final Result from Last 3 Months or Most Recently Relevant to Health Maintenance Insurance [place] [address] Care Teams Clinical Staff Educator Relationship Specialty Start Date End Date Charity Meeks MD [address] [place] [address] PCP - General Internal Medicine 05/30/24
== END 2024-10-22 14:52 | disposition home or self-care (01) ==
LOC: HO.HOSX 14:51
PROVIDERS: PCP Pediatrics; Visit Provider Physician Assistant
DX: M48.062 Spinal stenosis, lumbar region with neurogenic claudication (principal)
CPT/HCPCS: 72110

== ENCOUNTER → 2024-10-22 14:57 | Outpatient (BNV) | payer OTHER, SELFPAY | PROVIDERS: PCP Pediatrics; Visit Provider Radiology Diagnostic Radiology | DX: M43.16 Spondylolisthesis, lumbar region (principal) | CPT/HCPCS: 72110 ==

== ENCOUNTER 2024-10-22 15:09 | Outpatient (AMB) | payer OTHER, SELFPAY ==
--- NOTE | 2024-10-22 15:10 | HO.SPINEOV ---
Intake Visit Reasons: Xrays to be done before visit- pain in legs Intake Note: Mr. Collado is here today c/o pain in the legs. Clinical Counselor Required: No Allergies Penicillins Adverse Reaction (Mild, Verified 10/06/24 13:28) Rash Assessment & Plan Assessment & Plan (1) Lumbar stenosis with neurogenic claudication: Code(s): M48.062 - Spinal stenosis, lumbar region with neurogenic claudication Category: Medical Plan Procedure: L3-L4, L4-5, L5-S1 Lumbar decompression Zachary is a pleasant 74-year-old male who underwent L3-S1 lumbar decompression with Dr. Sterling about 2-1/2 months ago. To recap he was previously doing well aside from some residual right knee pain which was likely secondary to right-sided knee pathology that he has at baseline. Unfortunately his dog ran into him at home and knocked him over. It sounds like it was a fairly significant fall. Since then he has had return of pains in his bilateral lateral thighs, and in his posterior calves/gastrocnemius. He is concerned that he may have re-injured 1 of the areas that he recently had decompression on. The pain is worse with ambulation, and has restricted his ability to participate in meaningful activities such as dancing with his . No new neurological deficits. The patient ambulates well, but does so rather slowly with a hunched over appearance. His gait is nonantalgic and non spastic. I would like to send Zachary for a course of physical therapy to see if this is something that his simply musculoskeletal in origin and can be worked out with gentle range of motion and stretching. If he continues to have symptoms despite physical therapy, I will consider ordering him a lumbar MRI with gadolinium. Nicholas Sterling MD,PhD [facility] Orders: Orders PT Evaluation and Treatment Today M79.606 - Pain in leg, unspecified Coding Level of Care Code Est Pt Level 2 (03912) Diagnoses Lumbar stenosis with neurogenic claudication M48.062
--- OUTSIDE RECORDS SUMMARY | 2024-10-22 15:13 | XMS_ITS | Data Portability ---
Author Organization [place] [facility], [facility] Address [address] [place] [address] Care Team Providers Care Wall To Wall Carpet Installer Name Role Phone [facility] Primary Care Provi evan Assessment Encounter Date Assessment Date Assessment LastModified by Organization Details LastModified Time 03/07/2024 03/07/2024 I am seeing the patient today under the supervision of who was available but who did not see the patient. Please see procedure documentation for further information about the injection performed today. [email or web address] Not available 03/07/2024 07:25:10 Plan of Treatment [...] 4v 2024 025 [facility], [address], [facility] [address], [place], [address], 07/03/2024 16:07:02 Medication Orders meloxica m 15 mg tablet 2023 024 [id number], [address] [place], [address], 10/04/2023 11:09:28 Patient TargetsNo targets recorded. Patient Instructions Encounter Date Encounter Id Patient Instructions Last Modified By Organization Details Last Modified Time 03/07/2024 [id number] You have been provided with a viscosupplementation [...] or contact us through the portal ZAN. [email or web address] Not available 03/07/2024 07:25:14 Reason for Referral None Reported. Results Created Date Observation Date Name Description Value Unit Range Abnormal Flag Note LastModifiedBy Organization Detail LastModifiedTime 06/20/19 25 06/20/2024 XR, knee, 4 or more view http:/ [email or web address] ?Encry pted=s hAaTro YD8dLq bEUv6g %2BXZw aYqtaq 0bqfl% 2Fg9IQ a4ajBk vP9nXo QUaueC m3YtLR FvZlgJ JJ8[place] HZtai3 9e3145 AC0Kqb 3uFVKO kKiQtr F INTERFACE [facility] [address], [place], [address], 06/20/2024 13:44:47 06/20/19 25 06/20/2024 XR, knee, 4 or more view [email or web address] ?Encry pted=s hAaTro YD8dLq bEUv6g %2BXZw aYqtaq 0bqfl% 2Fg9IQ a4ajBk vP9nXo QUaueC m3YtLR FvZlgJ JJ8mAn HZtai3 5p0463 AC0Kqb 3uFVKO kKiQtr MwF INTERFACE [facility] [address], [place], [address], 06/20/2024 13:44:49 Result Notes None recorded. Problems Name Problem SNOMED Code Status Onset Date Resolution Date Notes Provider Name and Address Organization Details Recorded Time Osteoarthri tis of right knee joint 6616246720280 00 Active 2023 Winifred Hays i, PA-C [address], [place], [address], [facility] 4 10:10:30 Problem Notes None recorded. Procedures Surgical History Date Name Laterality Status Provider Name and Address Organization Details Recorded Time 5 Sports Knee 4&1 completed Winifred Morales PA-C [address], [place], [address], [facility] 06/20/2024 10:32:57 4 Durolane Knee Injection completed José Antonio Alcaraz PA-C [address], [place], [address], [facility] 03/07/2024 07:25:21 4 Sports Knee 4&1 completed Destiny Mireles PA-C [address], [place], [address], [facility] 01/08/2024 09:17:47 4 Sports Knee 4&1 completed Destiny Mireles PA-C [address], [place], [address], [facility] 10/04/2023 09:52:50 Imaging Results Imaging Date Name Status LastModified by Organiz ation Details LastModified Time 06/20/2024 XR, knee, 4 or more view completed INTERFACE [facility] [address], [place], [address], 06/20/2024 13:44:47 06/20/2024 XR, knee, 4 or more view completed INTERFACE [facility] [address], [place], [address], 06/20/2024 13:44:49 Procedure Notes None recorded. Medical [...] Updated DateTime 10/04/2023 177.8 cm 29.4 kg/m2 98610.44 g REAL PEÑA [place] - [facility] 10/04/2023 09:11:52 Date Recorded Body height Body mass index (BMI) Body weight Provider Name and Address Organization Details Last Updated DateTime 03/07/2024 177.8 cm 29.4 kg/m2 45837.44 g JAIME YOUNG [place] [facility] 03/07/2024 09:29:32 Date Recorded Body height Body mass index (BMI) Body weight Provider Name and Address Organization Details Last Updated DateTime 05/06/2024 177.8 cm 29.4 kg/m2 50493.44 g Lupe Maharaj [facility] 05/06/2024 09:27:55 Date Recorded Body height Body mass index (BMI) Body weight Systolic blood pressure Diastolic blood pressure Provider Name and Address Organization Details Last Updated DateTime 06/20/2024 177.8 cm 29.4 kg/m2 45131.44 g 130 mm[Hg] 80 mm[Hg] Sumit Luz [facility] 13:35:08 Social History None recorded. Functional Status None recorded. Mental Status None recorded. Family History Nothing Reported. Medical History Condition Response Allergies/Hayfever N Coronary Artery Disease N Anxiety/Depression N Breathing or lung disorders N Emphysema N Nerve Disorders N Thyroid Problems N COPD N Pacemaker N Anemia N Kidney/Bladder Problems N Vascular Disease N Heart Trouble N Heart Attack (SD) N Gastrointestinal Disease N Cholesterol Y Diabetes [...] SNOMED-CT Code Diagnosis ICD10 Code Diagnosis Note [id number] [facility] [address] [place] [address] 10/04/2023 09:00:29 10/04/2023 09:57:52 Arthritis of right knee 6023522687 055018 M13.493 [id number] FRANK [facility] [address] [place] [address] 01/08/2024 09:07:03 02/01/2024 13:48:32 Osteoarthritis of right knee joint 1333579041 04436 M17.11 [id number] José Antonio Alcaraz PA-C [facility] [address] [place] [address] 03/07/2024 09:23:22 04/02/2024 10:09:03 Osteoarthritis of right knee joint 1088678961 38520 M17.11 [id number] Winifred Vásquez PA-C [facility] [address] [place] [address] 05/06/2024 09:01:53 05/21/2024 07:49:14 Osteoarthritis of right knee joint 2273714572 09550 M17.11 [id number] Winifred Morales PA-C [facility] - [facility] [address] [place] [address] 06/20/2024 13:24:56 07/03/2024 16:07:02 Osteoarthritis of right knee joint 4778670356 68630 M17.11 Health Concerns Section Related Observation LastModified by Organization Detai ls LastModified Time None Recorded Concern Status LastModified by Organization Details LastModified Time None Recorded Advance Directives Directive None Recorded Payers Encounter Date Sequence Insurance Name Policy Number Policy Patel Covered Member ID Patel Member ID Guarantor Name 10/04/2023 1 [facility] (MEDICARE REPLACEMENT/A DVANTAGE - PPO) [id number] Zachary Collado [id number] Zachary Collado 01/08/2024 1 [facility] (MEDICARE REPLACEMENT/A DVANTAGE - PPO) [id number] Zachary Collado [id number] Zachary Collado 03/07/2024 1 [facility] (MEDICARE REPLACEMENT/A DVANTAGE - PPO) [id number] Zachary Collado [id number] Zachary Collado 05/06/2024 1 [facility] (MEDICARE REPLACEMENT/A DVANTAGE - PPO) [id number] Zachary Collado [id number] Zachary Collado 06/20/2024 1 [facility] (MEDICARE REPLACEMENT/A DVANTAGE - PPO) [id number] Zachary Collado [id number] Zachary Collado Notes Date Note Type Note Provider Name and Address Organization Details Recorded Time text/html I am seeing the patient today under the supervision of Dr. Kirt Bhandari#}} who was available but who did not see the patient. HPI: Patient presents today regarding their {{right* left bilateral}} knee. They have had difficulty up and down stairs sitting standing. Problems ambulating. Zumn-euu-jragrla medications are helping somewhat but not significantly. [...] scheduled. All questions answered Destiny Mireles PA-C [address] [place] [address] [address] [facility], [place], [address], [facility] - [facility] 10/04/2023 09:53:06 4 text/html I am seeing the patient today under the supervision of {{ Elisabet#}} who was available but who did not see the patient. HPI: Patient presents today regarding their {{right* left bilateral}} knee. They have had difficulty up and down stairs sitting standing. Problems ambulating. Rhwj-akv-rwwjgfq medications are helping somewhat but not significantly. [...] scheduled. All questions answered Destiny Mireles PA-C [address] [place] [address] [address], [place], [address], [facility] - [facility] 01/08/2024 09:59:11 4 text/html I am seeing the patient today under the supervision of {{Roberto Carlos xiao [facility] [place]}} who was available but who did [...] since 2021. Discussed low-impact exercise and utilizing ytlq-gvh-jfgtojp topical and oral anti-inflammatories as needed for pain relief. All of his concerns are addressed and he understands and agrees with the plan. Speech recognition science center display builder software was used to create portions of this document. An attempt at proofreading has been made to minimize errors. Please call for corrections. Winifred Vásquez PA-C [address], [place], [address], [facility] 05/06/2024 10:11:16 5 [...] knee ordered, obtained and reviewed today at [facility] demonstrates mild chondrocalcinosis, mild medial and patellofemoral compartment narrowing. IMPRESSION: {{Right* Left Bilateral}} knee - mild osteoarthritis, chondrocalcinosis PLAN: Findings reviewed. Discussed ongoing conservative treatment options. He elected to proceed with right knee cortisone injection today. Discussed low-impact exercise and utilizing riau-lgh-fvqbaou topical and oral anti-inflammatories as needed for pain relief. Follow up as symptoms dictate. All of his concerns are addressed and he understands and agrees with the plan. Speech recognition science center display builder software was used to create portions of this document. An attempt at proofreading has been made to minimize errors. Please call for corrections. Winifred Morales PA-C [address], [place], [address], [facility] 06/20/2024 13:50:28
== END 2024-10-22 15:47 | disposition home or self-care (01) ==
LOC: HO.HNS 15:09
PROVIDERS: PCP Pediatrics; Visit Provider Physician Assistant
DX: M48.062 Spinal stenosis, lumbar region with neurogenic claudication (principal)
CPT/HCPCS: 99024

== ENCOUNTER 2024-12-16 10:58 | Outpatient (REF) | payer MEDICARE, SELFPAY ==
--- OUTSIDE RECORDS SUMMARY | 2024-12-17 11:51 | XMS_ITS | Clinical Summary ---
Author Organization [facility] Address [address] [place] [address] Care Team Providers Care Precision Dyer Name Role Phone Lobito Tadeo MD Primary [...] Fish Oil-Cholecalcifero l (Fish Oil + D3) [id number] MG-UNIT CAPS Take by mouth. 0 04/30/2017 [...] 101 12/16/2022 8:57 AM EDT Temperature 37.1 C (98.8 F) 12/16/2022 8:57 AM EDT Respiratory Rate - - Oxygen Saturation 99% [...] 06/17/2023 06/17/2022 Preventative Health Evaluation 06/17/2023 06/17/2022 RSV Adult > 60+ Yrs or Pregn ant (1 - 1-dose 75+ series) 2024 Influenza Vaccine (#1) 2025 Hepatitis B Vaccines Aged Out No long er eligible based on patient's age to complete this topic RSV Ped < 20 months Aged Out No longe r eligible based on patient's age to complete this topic Care Teams Precision Dyer Relationship Specialty Start Date End Date Lobito Tadeo MD PCP - General Family Medicine 12/26/21
--- OUTSIDE RECORDS SUMMARY | 2024-12-17 11:51 | XMS_ITS | Data Portability ---
Author Organization [place] - [facility], [facility] Address [address] [place] [address] Care Team Providers Care Nursing Home Assistant Administrator Name Role Phone [facility] Primary Care Provi evan Assessment Encounter Date Assessment Date Assessment LastModified by Organization Details LastModified Time 03/07/2024 03/07/2024 I am seeing the patient today under the supervision of who was available but who did not see the patient. Please see procedure documentation for further information about the injection performed today. [email or web address] Not available 03/07/2024 07:25:10 Plan of Treatment Reminders Order Date Submit Date Provider Last Modified By Organization Details Last Modified Time Details Appointments None recorded. Lab None recorded. Referral None recorded. Procedures None recorded. Surgeries None recorded. Imaging XR, knee, 4 or more view - rm 312 right knee 4v 2024 025 [facility], [address] [facility] [address], [place], [address], 5 16:07:02 Medication Orders meloxicam 15 mg tablet 2023 024 [id number], [address] [place], [address], 4 11:09:28 Patient TargetsNo targets recorded. Patient Instructions Encounter Date Encounter Id Patient Instructions Last Modified By Organization Details Last Modified Time 03/07/2024 [id number] You have been provided with a viscosupplementation [...] following the injection. This is called a flare . To help minimize the chances of this, please see the post-injection instructions above. There is a less than 1% chance of an infection. If you notice any signs of infection (redness, warmth, drainage, fever greater than 100 degrees) please call our office or contact us through the portal ZAN. [email or web address] Not available 03/07/2024 07:25:14 Reason for Referral None Reported. Results Created Date Observation Date Name Description Value Unit Range Abnormal Flag Note LastModifiedBy Organization Detail LastModifiedTime 06/20/19 25 06/20/2024 XR, knee, 4 or more view http:/ [email or web address] ?Encry pted=s hAaTro YD8dLq bEUv6g %2BXZw aYqtaq 0bqfl% 2Fg9IQ a4ajBk vP9nXo QUaueC m3YtLR FvZlgJ JJ8mAn HZtai3 5h8198 AC0Kqb 3uFVKO kKiQtr MwF INTERFACE [facility] [address], [address], 06/20/2024 13:44:47 06/20/19 25 06/20/2024 XR, knee, 4 or more view [email or web address] ?Encry pted=s hAaTro YD8dLq bEUv6g %2BXZw aYqtaq 0bqfl% 2Fg9IQ a4ajBk vP9nXo QUaueC m3YtLR FvZlgJ JJ8mAn HZtai3 6x0289 AC0Kqb 3uFVKO kKiQtr MwF INTERFACE [facility] [address], [place], [address], 06/20/2024 13:44:49 Result Notes Documentation Provider Name and Address Organization Details Recorded Time Xr, Knee, 4 Or More View : [email or web address] Encrypted=etInCwlHK5sRenU Uv6g%5BNCykLzvph5zsfo%2Fg 2ICf5tmDqoS8vTdGNmafVl7Bz ACWjAldIOD6kSvFDunn38p749 5TR3Jld8jIEUAnLrRiwNmO Not Available [facility] 06/20/2024 13:44: 48 Xr, Knee, 4 Or More View : [email or web address] Encrypted=laVtWzfBB8yKfdA Uv6g%3TPQuoGqxjy5zcqv%2Fg 4IUs2cxXjhO8oLsPIwziYz8Wq FXLeRgrSOR6xKeBIbsr67b940 9FZ4Ltz7qNIORkJfSzqExR Not Available [facility] 06/20/2024 13:44: 50 Problems Name Problem SNOMED Code Status Onset Date Resolution Date Notes Provider Name and Address Organization Details Recorded Time Osteoarthri tis of right knee joint 7008614572140 00 Active 2023 Winifred Hays i, PA-C [address], [place], [address], [facility] 4 10:10:30 Problem Notes None recorded. Procedures Surgical History Date Name Laterality Status Provider Name and Address Organization Details Recorded Time 5 JZKNEE INJ cancelled José Antonio Alcaraz PA-C [address], [place], [address], [facility] 11/06/2024 05:53:02 5 Sports Knee 4&1 completed Winifred Morales PA-C [address], [place], [address], [facility] 06/20/2024 10:32:57 4 Durolane Knee Injection completed José Antonio Alcaraz PA-C [address], [place], [address], [facility] 03/07/2024 07:25:21 4 Sports Knee 4&1 completed Destiny Mireles PA-C [address], [place], [address], [facility] 01/08/2024 09:17:47 4 Sports Knee 4&1 completed Destiny Mireles PA-C [address], [place], [address], [facility] 10/04/2023 09:52:50 Imaging Results None recorded. Procedure Notes None recorded. Medical Equipment None [...] tablet TAKE 1 TABLET EVERY DAY BY MOUTH AFTER MEAL active Not Available Not Available No t Available amlodipine 5 mg tablet TAKE 1 TABLET [...] Not Available Not Available No t Available oxycodone 5 mg tablet TAKE 1 TABLET ORALLY EVERY 6 HOURS NEEDED FOR PAIN PARTIAL FILL UPON PATIENT REQUEST. active Not Available Not Available No t Available tadalafil 20 mg tablet TAKE 1 TABLET BY MOUTH NEEDED, 30 MIN-1 HOUR BEFORE ANTICIPAT ED INTERCOUR SE active Not Available Not Available No t Available chlorhexidi ne gluconate 0.12 % mouthwash PLEASE SEE ATTACHED FOR DETAILED DIRECTION S active Not Available Not Available No t Available Vitals Date Recorded Body height Body mass index (BMI) Body weight Systolic And Diastolic Provider Name and Address Organization Details Last Updated DateTime 06/20/2024 177.8 cm 29.4 kg/m2 25386.44 g 130/80 mm[Hg] Sumit Luz [facility] 06/20/2024 13:35:08 Date Recorded Body height Body mass index (BMI) Body weight Provider Name and Address Organization Details Last Updated DateTime 10/04/2023 177.8 cm 29.4 kg/m2 49257.44 g REAL PEÑA [facility] 10/04/2023 09:11:52 Date Recorded Body height Body mass index (BMI) Body weight Provider Name and Address Organization Details Last Updated DateTime 03/07/2024 177.8 cm 29.4 kg/m2 82262.44 g JAIME YOUNG [facility] 03/07/2024 09:29:32 Date Recorded Body height Body mass index (BMI) Body weight Provider Name and Address Organization Details Last Updated DateTime 05/06/2024 177.8 cm 29.4 kg/m2 37712.44 g Lupe Maharaj [facility] 05/06/2024 09:27:55 Social History None recorded. Functional Status None [...] SNOMED-CT Code Diagnosis ICD10 Code Diagnosis Note [id number] Destiny Mireles PA-C [facility] [address] [place] [address] 10/04/2023 09:00:29 10/04/2023 09:57:52 Arthritis of right knee 8463305133 035609 M13.747 [id number] Destiny Mireles PA-C [facility] [address] [place] [address] 01/08/2024 09:07:03 02/01/2024 13:48:32 Osteoarthritis of right knee joint 5209275174 32981 M17.11 [id number] José Antonio Alcaraz PA-C [facility] [address] [place] [address] 03/07/2024 09:23:22 04/02/2024 10:09:03 Osteoarthritis of right knee joint 3721899035 09186 M17.11 [id number] Winifred Vásquez PA-C [facility] [address] [place] [address] 05/06/2024 09:01:53 05/21/2024 07:49:14 Osteoarthritis of right knee joint 2677935585 07898 M17.11 [id number] Winifred Morales PA-C [facility] [address] [place] [address] 06/20/2024 13:24:56 07/03/2024 16:07:02 Osteoarthritis of right knee joint 7473165659 76918 M17.11 Health Concerns Section Related Observation LastModified by Organization Detai ls LastModified Time None Recorded Concern Status LastModified by Organization Details LastModified Time None Recorded Advance Directives Directive None Recorded Payers Insurance Date Sequence Insurance Name Policy Number Policy Patel Covered Member ID Patel Member ID Guarantor Name 11/04/2024 1 [facility] (MEDICARE REPLACEMENT/A DVANTAGE - PPO) [id number] Zachary Collado [id number] Zachary Collado Notes Date Note Type Note Provider Name and Address Organization Details Recorded Time 4 text/html I am seeing the patient today under the supervision of Dr. Bhandari who was available but who did not see the patient. HPI: Patient presents today regarding their right knee. They have had difficulty up and down stairs sitting standing. Problems ambulating. Jlzv-bjp-jeroild medications are helping somewhat but not significantly. Pain is constant aching sometimes sharp pain with giving out sensations. Past family, medical, social history and review of systems has been reviewed, updated and is located in the patient s chart. Examination: The patient is well appearing and in no apparent distress. Alert and oriented x3. Gait is symmetric. Examination of the right knee reveals no evidence of any edema, erythema, or warmth. No Deformity. Range of motion of the knee limited with mild discomfort at the end ranges. Mild effusion. Does have some tenderness to palpation about the joint line. Negative Jero s. Calf is supple and nontender. Neurovascularly intact distally. Impression: right Knee osteoarthritis Plan: We discussed the role of conservative management including medications, physical therapy, injection and bracing. At this point the patient wishes to proceed with injection today. See procedure documentation. They will follow up with us as scheduled. All questions answered Destiny Mireles PA-C [address] [place] [address] [address], [place], [address], [facility] [place] [facility] 10/04/2023 09:53:06 4 text/html I am seeing the patient today under the supervision of Dr. Bhandari who was available but who did not see the patient. HPI: Patient presents today regarding their right knee. They have had difficulty up and down stairs sitting standing. Problems ambulating. Aqfr-ogs-ogsxvff medications are helping somewhat but not significantly. Pain is constant aching sometimes sharp pain with giving out sensations. Past family, medical, social history and review of systems has been reviewed, updated and is located in the patient s chart. Examination: The patient is well appearing and in no apparent distress. Alert and oriented x3. Gait is symmetric. Examination of the right knee reveals no evidence of any edema, erythema, or warmth. No Deformity. Range of motion of the knee limited with mild discomfort at the end ranges. Mild effusion. Does have some tenderness to palpation about the joint line. Negative Jero s. Calf is supple and nontender. Neurovascularly intact distally. Impression: right Knee osteoarthritis Plan: We discussed the role of conservative management including medications, physical therapy, injection and bracing. At this point the patient wishes to proceed with injection today. See procedure documentation. We will also submit for gel injection approval as he has had incomplete relief from cortisone of late. They will follow up with us as scheduled. All questions answered Destiny Mireles PA-C [address], [place], [address], [facility] 01/08/2024 09:59:11 4 text/html I am seeing the patient today under the supervision of Dr. Robles who was available but who did not [...] reviewed, updated and is located in the patient s chart. X-RAYS: Deferred this visit. IMPRESSION: Right knee - mild osteoarthritis, chondrocalcinosis PLAN: Findings reviewed. Discussed ongoing conservative treatment options. We schedule an appointment in June for repeat right knee cortisone injection andnew x-rays as he has not had updated x-rays since 2021. Discussed low-impact exercise and utilizing riwy-ntk-bmzqggy topical and oral anti-inflammatories as needed for pain relief. All of his concerns are addressed and he understands and agrees with the plan. Speech recognition belt line feeder software was used to create portions of this document. An attempt at proofreading has been made to minimize errors. Please call for corrections. Winifred Vásquez PA-C [address], [place], [address], [facility] 05/06/2024 10:11:16 5 text/html I am seeing the patient today under the supervision of Dr. Go who was available but who did not [...] reviewed, updated and is located in the patient s chart. X-RAYS: 4v x-rays of the right knee ordered, obtained and reviewed today at [facility] demonstrates mild chondrocalcinosis, mild medial and patellofemoral compartment narrowing. IMPRESSION: Right knee - mild osteoarthritis, chondrocalcinosis PLAN: Findings reviewed. Discussed ongoing conservative treatment options. He elected to proceed with right knee cortisone injection today. Discussed low-impact exercise and utilizing oqzp-ovy-nskbhmq topical and oral anti-inflammatories as needed for pain relief. Follow up as symptoms dictate. All of his concerns are addressed and he understands and agrees with the plan. Speech recognition belt line feeder software was used to create portions of this document. An attempt at proofreading has been made to minimize errors. Please call for corrections. Winifred Morales PA-C [address] [facility] [address] [facility] [address], [place], [address], [facility] [place] [facility] 06/20/2024 13:50:28
--- OUTSIDE RECORDS SUMMARY | 2024-12-17 11:51 | XMS_ITS ---
Author Name [facility] Organization Unknown Encounters Encounter Type Encounter Reason Primary Diagnosis Location Date Ambulatory [facility] 03/14/2024 Care Team Organization Name Specialty Phone Email Start Date End Da te [facility] 2024
== END 2024-12-16 10:59 | disposition home or self-care (01) ==
LOC: HO.HOSX 10:58
PROVIDERS: Visit Provider Orthopaedic Surgery
DX: Z13.89 Encounter for screening for other disorder (principal)

== ENCOUNTER → 2024-12-16 23:59 | Outpatient (BNV) | payer MEDICARE, SELFPAY | PROVIDERS: Visit Provider Psychiatry & Neurology Neurology | DX: M62.541 Muscle wasting and atrophy, not elsewhere classified, right hand (principal) | CPT/HCPCS: 95908 ==

== ENCOUNTER → 2025-02-17 12:44 | Outpatient (BNV) | payer MEDICARE, SELFPAY | PROVIDERS: Visit Provider Radiology Diagnostic Radiology | DX: M48.062 Spinal stenosis, lumbar region with neurogenic claudication (principal) | CPT/HCPCS: 72148 ==

== ENCOUNTER 2025-02-17 12:46 | Outpatient (REF) | payer MEDICARE, SELFPAY ==
--- NOTE | ~2025-02-17 | MR_ITS ---
CLINICAL HISTORY: M48.062 - Spinal stenosis, lumbar region with neurogenic claudication MR of the lumbar spine without contrast Comparison: DX/SR - XR LUMBAR SPINE 4V MIN - 10/22/24 14:57 EDT Findings: 2 mm retrolisthesis of L3 on L4, degenerative. 3 mm anterolisthesis of L5 on S1, degenerative. Trace Modic type 1 change at L2/L3, L3/L4 and L4/L5. Mild multilevel Modic type 2 change present at the superior endplate of L3, L3/L4, L4/L5 and L5/S1. No cord expansion or abnormal signal intensity. The conus medullaris terminates at L2, which is the lower limit of normal. The cauda equina is unremarkable. L1/L2: No disc herniation. Mild facet joint and ligamentum flavum hypertrophy. No central canal stenosis. Mild bilateral lateral recess stenosis. No foraminal stenosis. L2/L3: 2 mm broad-based disc bulge. Moderate facet joint and ligamentum flavum hypertrophy. Mild central canal stenosis. Severe bilateral lateral recess stenosis, greater on the left. No foraminal stenosis. L3/L4: Status post left hemilaminectomy. 5 mm broad-based disc bulge versus granulation tissue. Severe facet joint hypertrophy. There is fluid in the facet joints. Moderate to severe central canal stenosis. Severe bilateral lateral recess stenosis. Mild right and no left foraminal stenosis. L4/L5: Status post left hemilaminectomy. 3 mm broad-based disc bulge with annular fissure versus granulation tissue. Severe facet joint hypertrophy. Moderate central canal stenosis. Severe bilateral lateral recess stenosis. Moderate right and no left foraminal stenosis. L5/S1: Status post left hemilaminectomy. There is uncovering of the disc with 4 mm broad-based disc bulge versus granulation tissue. Severe facet joint and ligamentum flavum hypertrophy. Moderate to severe central spinal canal stenosis. Moderate right and severe left lateral recess stenosis. Mild bilateral foraminal stenosis, greater on the left. Bilateral renal cysts. Impression: No acute findings. Multilevel degenerative change, detailed above. This document has been electronically signed by: Aiyana Hung MD on 02/18/2025 15:55:25
--- OUTSIDE RECORDS SUMMARY | 2025-02-17 16:44 | XMS_ITS | Clinical Summary ---
Author Organization [facility] [address] [facility] [address] Address [address] [place] [address] Phone Care Team Providers Care Nutter Up Name Role Phone Charity Meeks MD Primary Care Provider [phone] Allergies Active Allergy Reactions Criticality Noted Date Comments Atorvastatin Pain Medium 12/18/2023 Medications aspirin 81 mg capsule Take 1 tablet by mouth 1 (one) time each day. 7 Active cyanocobalamin (VITAMIN B-12) 500 mcg tablet Take by mouth. 7 Active omega3/dha/epa/f patricia oil/vit D3 (FISH OIL-VIT D3 ORAL) Take by mouth. 7 Active metoprolol succinate (TOPROL-XL) 50 mg 24 hr tablet TAKE 1 TABLET BY MOUTH EVERY DAY 90 tablet 1 5 Active tadalafiL (CIALIS) 20 mg tabletIndication s:Erectile dysfunction, unspecified erectile dysfunction type Take 1 tablet (20 mg total) by mouth 1 (one) time each day if needed for erectile dysfunction. 12 tablet 3 5 11/05/19 26 Active famotidine (Pepcid) 20 mg tabletIndication s:Gastroesophage al reflux disease without esophagitis Take 1 tablet (20 mg total) by mouth 2 (two) times a day. 60 each 11 5 12/31/19 26 Active losartan (COZAAR) 50 mg tablet Take 1 tablet (50 mg total) by mouth 1 (one) time each day. Active diclofenac (VOLTAREN) 1 % topical gel Apply 2 g topically 4 (four) times a day. 720 g 1 5 06/28/19 26 Active rosuvastatin (CRESTOR) 20 mg tabletIndication s:Hypercholester emia Take 1 tablet (20 mg total) by mouth 1 (one) time each day. 30 each 5 5 07/05/19 26 Active celecoxib (CeleBREX) 200 mg capsule TAKE 1 CAPSULE BY MOUTH 1 TIME EACH DAY. 90 capsule 1 5 Active Active Problems Problem Noted Date Diagnosed Date Hypertension 11/19/2023 Spinal stenosis of lumbar re gion with neurogenic claudication 05/18/2021 Overweight (BMI 25.0-29.9) 09/14/2017 Erectile dysfunction 04/30/2017 Heart burn 04/30/2017 Hypercholesteremia 01/11/2006 Encounters Date Type Department Care Team Description 12/30/2024 10:30 AM EDT Office Visit Adult Medicine [address] [id number] Kaye Zelaya PA Gastroesophageal reflux disease without esophagitis (Primary Dx); Arthritis of knee; Paresthesia; Screening for diabetes mellitus; Hypertension, unspecified type 12/16/2024 4:06 PM EDT - 12/16/2024 11:59 PM EDT Hospital Encounter [facility] [address] [place] [address] Atrophy of muscle of right hand Discharge Disposition: Home or Self Care from Last 3 Months Immunizations Name Administration [...] for your loved ones. For example, child psychometrist or elderly care for an older adult? [...] Sign Reading Time Taken Comments Blood Pressure 120/82 12/30/2024 10:48 AM EDT Pulse 84 12/30/2024 10:25 AM EDT Temperature 37.1 C (98.7 F) 12/30/2024 10:25 AM EDT Respiratory Rate 12 12/30/2024 10:25 AM EDT Oxygen Saturation 96% 12/30/2024 10:25 AM EDT Inhaled Oxygen Concentration - - Weight 92.5 kg (204 lb) 12/30/2024 10:25 AM EDT Height 177.8 cm (5' 10 ) 12/30/2024 10:25 AM EDT Body Mass Index 29.27 12/30/2024 10:25 AM EDT Plan of Treatment Health Maintenance Due Date Last Done Comments DTaP,Tdap,and Td Vaccines (1 - Tdap) 1968 Pneumococcal Vaccine: 50+ Years (1 of 1 - PCV) 1999 Zoster Vaccines (1 of 2) 1999 Colorectal Cancer Screening: Stool Based Tests (FOBT/FIT) 05/12/2022 Falls Risk Assessment 05/12/2022 Medicare Annual Wellness Visit 05/12/2022 RSV Immunization Adult Patients (1 - 1-dose 75+ series) 2024 COVID-19 Vaccine (4 - 2024-2 6 season) 2025 06/07/2021, 09/21/2020, 08/24/2020 Influenza Vaccine (#1) 2025 05/04/2016 Social Influencers of Health Screening 07/15/2025 07/15/2024 Hypertension/CHF/CAD Annual BMP Blood Test 01/01/2026 01/01/2025, 07/22/2024, 07/13/2023 Cholesterol Screening (Lipid Panel) 01/01/2030 01/01/2025, 04/07/2022, 10/06/2020 Hepatitis C Screening Completed 10/26/2015 Colorectal Cancer Screening: Colonoscopy Discontinued 04/30/2017 Abdominal Aortic Aneurysm (AAA) Screen Completed 02/09/2021 Depression Screening Completed 07/15/2024 HIB Vaccines Aged Out No longer eligi [...] Diagnosis Comments CBC WITH AUTO DIFFERENTIAL Routine 01/01/2025 8:56 AM EDT Paresthesia CBC AND DIFFERENTIAL Routine 01/01/2025 8:56 AM EDT Paresthesia COMPREHENSIVE METABOLIC PANEL Routine 01/01/2025 8:56 AM EDT Paresthesia HEMOGLOBIN A1C Routine 01/01/2025 8:56 AM EDT Screening for diabetes mellitus VITAMIN B12 Routine 01/01/2025 8:56 AM EDT Paresthesia MICROALBUMIN CREATININE URINE RATIO Routine 01/01/2025 8:56 AM EDT Hypertension, unspecified type LIPID PANEL WITH REFLEX TO DIRECT LDL Routine 01/01/2025 8:56 AM EDT Hypercholesteremia EMG 1 LIMB Routine 12/16/2024 4:27 PM EDT Atrophy of muscle of right hand HM ABDOMINAL AORTIC ANEURYSM SCRREN Routine 02/09/2021 COLONOSCOPY Routine 04/30/2017 HEPATITIS C SCREENING Routine 10/26/2015 from Last 3 Months or Most Recently Relevant to Health Maintenance Results * (ABNORMAL) Lipid panel with reflex to direct LDL (01/01/2025 8:56 AM EDT) Cholesterol 227(H) 0 - 200 mg/dL LAB CHEMISTRY METHOD 01/01/2025 2:11 PM EDT [facility] Triglycerides 172(H) 0 - 150 mg/dL LAB CHEMISTRY METHOD 01/01/2025 2:11 PM EDT [facility] HDL 57 >=40 mg/dL LAB CHEMISTRY METHOD 01/01/2025 2:11 PM EDT [facility] LDL Calculated 136(H) 0 - 100 mg/dL LAB CHEMISTRY METHOD 01/01/2025 2:11 PM EDT [facility] VLDL Cholesterol Pradeep 34.4 mg/dL LAB CHEMISTRY METHOD 01/01/2025 2:11 PM EDT [facility] Non HDL Chol. (LDL+VLDL) 170(H) <145 mg/dL LAB CHEMISTRY METHOD 01/01/2025 2:11 PM EDT [facility] Chol/HDL Ratio 4.0 0.0 - 4.4 LAB CHEMISTRY METHOD 01/01/2025 2:11 PM EDT [facility] Blood Venous blood specimen / Unknown Venipuncture / Unknown 01/01/2025 8:56 AM EDT 01/01/2025 8:56 AM EDT us Kaye MASSEY LAB BLOOD ORDERABLES Final Resul t [facility] [address] [place] [address], [place] [phone] * CBC auto differential (01/01/2025 8:56 AM EDT) [facility] WBC 7.0 4.8 - 10.8 K/mcL LAB HEMETOLOGY METHOD 01/01/2025 11:48 AM [facility] RBC 4.80 4.50 - 5.50 M/mcL LAB HEMETOLOGY METHOD 01/01/2025 11:48 AM [facility] Hemoglobin 13.6 13.5 - 17.5 g/dL LAB HEMETOLOGY METHOD 01/01/2025 11:48 AM [facility] Hematocrit 42.3 42.0 - 54.0 % LAB HEMETOLOGY METHOD 01/01/2025 11:48 AM [facility] MCV 88.7 79.0 - 98.0 FL LAB HEMETOLOGY METHOD 01/01/2025 11:48 AM [facility] MCH 28.5 27.0 - 32.0 pcg LAB HEMETOLOGY METHOD 01/01/2025 11:48 AM [facility] MCHC 32.2 32.0 - 37.0 g/dL LAB HEMETOLOGY METHOD 01/01/2025 11:48 AM [facility] RDW 13.3 11.0 - 15.0 % LAB HEMETOLOGY METHOD 01/01/2025 11:48 AM [facility] Platelets 256 130 - 400 K/mcL LAB HEMETOLOGY METHOD 01/01/2025 11:48 AM [facility] MPV 10.4 7.0 - 11.0 FL LAB HEMETOLOGY METHOD 01/01/2025 11:48 AM [facility] NRBC 0.0 <1.0 % LAB HEMETOLOGY METHOD 01/01/2025 11:48 AM [facility] NRBC Absolute 0.00 <0.10 K/mcL LAB HEMETOLOGY METHOD 01/01/2025 11:48 AM [facility] Neutrophils Relative 60.6 % LAB HEMETOLOGY METHOD 01/01/2025 11:48 AM [facility] Lymphocytes Relative 28.2 % LAB HEMETOLOGY METHOD 01/01/2025 11:48 AM [facility] Monocytes Relative 8.7 % LAB HEMETOLOGY METHOD 01/01/2025 11:48 AM [facility] Eosinophils Relative 1.7 % LAB HEMETOLOGY METHOD 01/01/2025 11:48 AM [facility] Basophils Relative 0.7 % LAB HEMETOLOGY METHOD 01/01/2025 11:48 AM [facility] Immature Granulocytes Relative 0.1 % LAB HEMETOLOGY METHOD 01/01/2025 11:48 AM [facility] Neutrophils Absolute 4.26 1.50 - 7.00 K/mcL LAB HEMETOLOGY METHOD 01/01/2025 11:48 AM [facility] Lymphocytes Absolute 1.98 1.00 - 5.00 K/mcL LAB HEMETOLOGY METHOD 01/01/2025 11:48 AM [facility] Monocytes Absolute 0.61 0.20 - 1.00 K/mcL LAB HEMETOLOGY METHOD 01/01/2025 11:48 AM [facility] Eosinophils Absolute 0.12 0.00 - 0.50 K/mcL LAB HEMETOLOGY METHOD 01/01/2025 11:48 AM [facility] Basophils Absolute 0.05 0.00 - 0.20 K/mcL LAB HEMETOLOGY METHOD 01/01/2025 11:48 AM [facility] Immature Granulocytes Absolute 0.01 0.00 - 0.03 K/mcL LAB HEMETOLOGY METHOD 01/01/2025 11:48 AM [facility] Blood Venous blood specimen / Unknown Venipuncture / Unknown 01/01/2025 8:56 AM EDT 01/01/2025 8:56 AM EDT Kaye MASSEY LAB BLOOD ORDERABLES Final Resul t Performing Organization Address [facility] de Phone Number [facility] [address] [place] [address], [place] [phone] * Microalbumin creatinine urine ratio (01/01/2025 8:56 AM EDT) Creatinine, Urine 108.0 mg/dL LAB CHEMISTRY METHOD 01/01/2025 2:23 PM EDT [facility] Microalb, Ur 11.9 0.0 - 29.0 mg/L LAB CHEMISTRY METHOD 01/01/2025 2:23 PM EDT [facility] Microalb/Creat Ratio 11 <30 mg/g creat LAB CHEMISTRY METHOD 01/01/2025 2:23 PM EDT [facility] Urine Urine specimen obtained by clean catch procedure / Unknown Non-blood Collection / Unknown 01/01/2025 8:56 AM EDT 01/01/2025 8:56 AM EDT Kaye MASSEY LAB URINE ORDERABLES Final Resul t Performing Organization Address [facility] de Phone Number [facility] [address] [place] [address], [place] [phone] * Hemoglobin A1c (01/01/2025 8:56 AM EDT) Hemoglobin A1C 5.9 <6.5 % LAB CHEMISTRY METHOD 01/01/2025 1:34 PM EDT [facility] Mean Bld Glu Estim. 123 mg/dL LAB CHEMISTRY METHOD 01/01/2025 1:34 PM EDT [facility] Blood Venous blood specimen / Unknown Venipuncture / Unknown 01/01/2025 8:56 AM EDT 01/01/2025 8:56 AM EDT Kaye MASSEY LAB BLOOD ORDERABLES Final Resul t [facility] [address] [place] [address], [place] [phone] * Vitamin B12 (01/01/2025 8:56 AM EDT) [facility] Vitamin B-12 660 250 - 900 pcg/mL LAB CHEMISTRY METHOD 01/01/2025 2:11 PM EDT [facility] Blood Venous blood specimen / Unknown Venipuncture / Unknown 01/01/2025 8:56 AM EDT 01/01/2025 8:56 AM EDT Kaye MASSEY LAB BLOOD ORDERABLES Final Resul t Performing Organization Address [facility]/ZIP Co de Phone Number [facility] [address] [place] [address], [place] [phone] * (ABNORMAL) Comprehensive metabolic panel (01/01/2025 8:56 AM EDT) [facility] Sodium 139 133 - 145 mmol/L LAB CHEMISTRY METHOD 01/01/2025 2:11 PM EDT [facility] Potassium 4.3 3.5 - 5.5 mmol/L LAB CHEMISTRY METHOD 01/01/2025 2:11 PM EDT [facility] Chloride 105 96 - 110 mmol/L LAB CHEMISTRY METHOD 01/01/2025 2:11 PM EDT [facility] CO2 28 21 - 32 mmol/L LAB CHEMISTRY METHOD 01/01/2025 2:11 PM EDT [facility] Anion Gap 6 3 - 11 LAB CHEMISTRY METHOD 01/01/2025 2:11 PM EDT [facility] Glucose 105(H) 70 - 100 mg/dL LAB CHEMISTRY METHOD 01/01/2025 2:11 PM [facility] BUN 23 5 - 25 mg/dL LAB CHEMISTRY METHOD 01/01/2025 2:11 PM [facility] Creatinine 1.37(H) 0.70 - 1.30 mg/dL LAB CHEMISTRY METHOD 01/01/2025 2:11 PM [facility] eGFR 54(L) >=60 mL/min/1. 73m2 LAB CHEMISTRY METHOD 01/01/2025 2:11 PM [facility] Comment:Calculation based on the Chronic Kidney Disease Epidemiology Collaboration (CKD-EPI) equation refit without adjustment for race. BUN/Creatinine Ratio 16.8 LAB CHEMISTRY METHOD 01/01/2025 2:11 PM [facility] Calcium 9.8 8.5 - 10.5 mg/dL LAB CHEMISTRY METHOD 01/01/2025 2:11 PM [facility] AST (SGOT) 20 10 - 42 unit/L LAB CHEMISTRY METHOD 01/01/2025 2:11 PM [facility] ALT (SGPT) 39 10 - 60 unit/L LAB CHEMISTRY METHOD 01/01/2025 2:11 PM [facility] Alkaline Phosphatase 78 42 - 121 unit/L LAB CHEMISTRY METHOD 01/01/2025 2:11 PM [facility] Total Protein 6.8 6.0 - 8.0 g/dL LAB CHEMISTRY METHOD 01/01/2025 2:11 PM [facility] Albumin 4.1 3.2 - 5.0 g/dL LAB CHEMISTRY METHOD 01/01/2025 2:11 PM [facility] Total Bilirubin 0.4 0.0 - 1.4 mg/dL LAB CHEMISTRY METHOD 01/01/2025 2:11 PM [facility] Blood Venous blood specimen / Unknown Venipuncture / Unknown 01/01/2025 8:56 AM EDT 01/01/2025 8:56 AM EDT us Kaye MASSEY LAB BLOOD ORDERABLES Final Resul t [facility] ([facility] [address] [place] [address], * EMG one limb (12/16/2024 4:27 PM EDT) Narrative Elida Mike MD - 12/16/2024 4:38 PM EDT Images from the original result were not included. [facility] [address] [place] [address] Electromyograph Report Date of service: 12/16/24 Patient Name: Elena Collado Date of : 1950 Age: 74 y.o. Gender: male Procedure Order: EMG one limb Ordering Provider: SHILPA Salmon Reason for Exam: There are no answered order specific questions. Diagnosis listed on Order: Atrophy of muscle of right hand Please see scanned report for testing details and results. Procedure Note Elida Mike MD - 12/16/2024 Images from the original note were not included. [facility] [address] [place] [address] Electromyograph Report Date of service: 12/16/24 Patient Name: Elena Collado Date of : 1950 Age: 74 y.o. Gender: male Procedure Order: EMG one limb Ordering Provider: SHILPA Salmon Reason for Exam: There are no answered order specific questions. Diagnosis listed on Order: Atrophy of muscle of right hand Please see scanned report for testing details and results. EDT us Kaye MASSEY NEUROLOGY ORDERABLES Final Resul t * Abdominal Aortic Aneurysm Screen (02/09/2021) Abdominal Aortic Aneurysm (AAA) Screening ABSTRACTED Anatomical Region Laterality Modality Other Historical Provider MD HEALTH MAINTENANCE Final Result * Colonoscopy (04/30/2017) Colonoscopy no interpretation , abstracted Anatomical Region Laterality Modality Other Historical Provider HEALTH MAINTENANCE Final Result * Hepatitis C Screening (10/26/2015) Hepatitis C Screening ABSTRACTED Historical Provider MD HEALTH MAINTENANCE Final Result from Last 3 Months or Most Recently Relevant to Health Maintenance Insurance [employer] Care Teams Nutter Up Relationship Specialty Start Date End Date Charity Meeks MD [address] [place] [address] PCP - General Internal Medicine 05/30/24
== END 2025-02-17 12:47 | disposition home or self-care (01) ==
LOC: HO.MRI 12:46
PROVIDERS: Visit Provider Physician Assistant
DX: M48.062 Spinal stenosis, lumbar region with neurogenic claudication (principal)
CPT/HCPCS: 72148

== ENCOUNTER 2025-05-26 12:38 | Outpatient (AMB) | payer MEDICARE, SELFPAY ==
--- NOTE | 2025-05-26 13:02 | HO.SPINEOV ---
Intake Visit Reasons: 3 month f/u Intake Note: Mr. Collado is here today for his 3 month F/u Bricklayer Tender Required: No Allergies Penicillins Adverse Reaction (Mild, Verified 05/26/25 13:02) Rash Assessment & Plan Assessment & Plan (1) Lumbar stenosis with neurogenic claudication: Code(s): M48.062 - Spinal stenosis, lumbar region with neurogenic claudication Category: Medical Plan Mr. Collado is a pleasant 75-year-old male who is known to our clinic and underwent L3-L4, L4-5, L5-S1 Laminotomy, Partial facetectomy and foraminotomy with Dr. Sterling on 09/06/24. He comes in today for subsequent follow-up after being sent for physical therapy. He reports that he did do well physical therapy and continues to do stretching/exercise while at home. Unfortunately he reports that he still gets quite a bit of cramping in his posterior calves in anterior thighs primarily with increased activity when standing/ambulating. Unfortunately he reports that this is not getting any better despite allowing the tincture of time to take its course. I did previously review his MRI imaging with Dr. Sterling, and we had a lengthy discussion about possible doing a midline full laminectomy L5-S1 vs. right-sided lumbar decompression at L3-4, L4-5, as his right-sided leg symptoms are worse versus the left. Zachary wishes to wait the full 1 year after surgery for full recovery before considering this intervention. I think this is a reasonable thing to do. I would like Zachary to follow up with us again in August to see if he has had any improvement in his symptoms. If he continues to report the same symptoms he had at previous office visits, we may need to consider the possibility of subsequent surgery. Nicholas Sterling MD,PhD [facility] Coding Level of Care Code Est Pt Level 2 (25712) Diagnoses Lumbar stenosis with neurogenic claudication M48.062
--- OUTSIDE RECORDS SUMMARY | 2025-05-26 13:42 | XMS_ITS | Continuity of Care Document ---
Author Organization [place] [facility], LEANDRA [place] Address [address] [place] [address] Care Team Providers Care Salesforce Business Analyst Name Role Phone ROBERTPEREZ Primary Care Provider ROBERT PEREZ Referring Provider [phone] Assessment Encounter Date Assessment Date Assessment LastModified by Organization Details LastModified Time 03/19/2025 03/19/2025 We reviewed the degenerative changes and chondrocalcinosis on his xrays. He wanted to proceed with the Synvisc injection. He tolerated this well. Post injection instructions reviewed. Icing protocol reviewed. He will let us know how s/he is doing and follow up as needed. Questions invited and answered. Patient verbalizes understanding and agreement with plan. PRIOR : He has mild right knee osteoarthritis. He has some degree of chondrocalcinosis in the medial and lateral compartments. His pain is predominantly medially based. I reviewed treatment options with him. At present I would not recommend any type of surgical intervention. He finds his symptoms limiting enough that he would like to consider trying viscosupplementatio n again. We will go ahead and put in a request for authorization. He understands that not all insurance companies authorize this type of treatment. In the interim he will continue home exercise program. I offered him physical therapy but he states he has no interest as he does not want to pay $45 for some kid to move his knee around . Not available 03/19/2025 21:33:45 Plan of Treatment Reminders Order Date Submit Date Provider Last Modified By Organization Details Last Modified Time Details Appointments None recorded. Lab None recorded. Referral None recorded. Procedures None recorded. Surgeries None recorded. Imaging None recorded. Medication Orders Synvisc-On e 48 mg/6 mL intra-audrey cular syringe 2024 025 [email or web address] 2 [id number], [address] [place], [address], 20:16:33 lidocaine (PF) 10 mg/mL (1 %) injection solution 2024 025 [email or web address] 2 [id number], [address] [place], [address], 20:16:33 Patient TargetsNo targets recorded. Patient Instructions Encounter Date Encounter Id Patient Instructions Last Modified By Organization Details Last Modified Time 03/19/2025 [id number] views of the r ight knee were obtained on 01/26/2025 in the [place] office. There is mild narrowing of the medial joint space. Trace chondrocalcinosis along the margin of the medial joint space. Subtle chondrocalcinosis also projects along the lateral joint line. Minimal retropatellar spurring. Patella tracks centrally. Findings: Mild degenerative changes noted right knee. Chondrocalcinosis. Interpreted by: Rishi Darby MD Not available 03/18/2025 18:00:07 Reason for Referral None Reported. Problems Name Problem SNOMED Code Status Onset Date Resolution Date Notes Provider Name and Address Organization Details Recorded Time Osteoarthri tis of right knee joint 1571380064652 00 Active 2024 Rishi Darby MD [address], [place], [address], [place] [facility] 5 06:17:01 Chondrocalc inosis of joint of right knee 5348288750067 107 Active 2024 Rishi Darby MD [address], [place], [address], [place] [facility] 5 13:35:35 Pain of right knee joint 1521084198073 00 Active 2024 Rishi Darby MD [address], [place], [address], [place] [facility] 5 06:24:41 Problem Notes None recorded. Procedures Surgical History Date Name Laterality Status Provider Name and Address Organization Details Recorded Time Synvisc-One Knee Inj completed REBECA IRIZARRY PA-C [address], [place], [address], [place] [facility] 03/19/2025 21:33:52 Synvisc-One Knee Inj w/[place] cancelled Diane Vega [place] [facility] 03/12/2025 08:58:04 Spine Surgery completed Diane Vega [place] [facility] 01/26/2025 13:21:05 Imaging Results None recorded. Procedure Notes None [...] Not Available Not Available No t Available atorvastatin 20 mg tablet TAKE 1 TABLET BY MOUTH EVERY DAY active Not Available Not Available No t Available metoprolol succinate ER 50 mg tablet,exten ded release 24 hr TAKE 1 TABLET BY MOUTH EVERY DAY active Not Available Not Available No t Available meloxicam 15 mg tablet TAKE 1 TABLET EVERY DAY BY MOUTH AFTER MEAL active Not Available Not Available N ot Available tramadol 50 mg tablet TAKE 1 OR 2 TABLETS BY MOUTH TWICE A DAY NEEDED ONLY WITH ACETAMINOPH EN 1000 MG active Not Available Not Available N ot Available sildenafil 100 mg tablet TAKE 1 TABLET BY MOUTH EVERY DAY NEEDED FOR ERECTILE DYSFUNCTION active Not Available Not Available Not Available famotidine 20 mg tablet TAKE 1 TABLET BY MOUTH TWICE A DAY active Not Available Not Available No t Available losartan 25 mg tablet TAKE 1 TABLET BY MOUTH EVERY DAY active Not Available Not Available No t Available oxycodone 5 mg tablet TAKE 1 TABLET ORALLY EVERY 6 HOURS NEEDED FOR PAIN PARTIAL FILL UPON PATIENT REQUEST. active Not Available Not Available No t Available rosuvastatin 20 mg tablet TAKE 1 TABLET (20 MG TOTAL) BY MOUTH ONE TIME EACH DAY active Not Available Not Available No t Available tadalafil 20 mg tablet TAKE 1 TABLET BY MOUTH 1 TIME EACH DAY IF NEEDED FOR ERECTILE DYSFUNCTION . active Not Available Not Available No t Available chlorhexidin e gluconate 0.12 % mouthwash PLEASE SEE ATTACHED FOR DETAILED DIRECTIONS active Not Available Not Available N ot Available lidocaine (PF) 10 mg/mL (1 %) injection solution Take 5 mL by injection route. 2024 active Not Available Not Available Not Edgar saavedra Synvisc-One 48 mg/6 mL intra-articu lar syringe Take 6 mL by intraarticu lar route. 2024 active Not Available Not Available Not Avai labarjun Vitals Date Recorded Body height Provider Name an d Address Organization Details Last Updated DateTime 03/19/2025 180.34 cm [facility] [place] [facility] 03/19/2025 16:20:30 Social History None recorded. Functional Status Question Answer Note LastModified by Organizat ion Details LastModified Time How many times per week do you consume alcohol? 1-2 times per week [email or web address] Information not available 01/26/2025 Do you use any illicit or recreational drugs? No [email or web address] Information not available 01/26/2025 Do you or have you ever used any other forms of tobacco or nicotine? No [email or web address] Information not available 01/26/2025 What is your level of alcohol consumption? Occasional [email or web address] Information not available 01/26/2025 Are you currently employed? No Information not available 01/26/2025 Mental Status None recorded. Family History Nothing Reported. Medical History Condition Response Coronary Artery Disease N Gout N Hyperthyroidism N MRSA N Blood Transfusion N Emphysema N Depression N COPD N Hypothyroidism N Pacemaker N Vascular Disease N Gastrointestinal Disease N Anxiety Disorder N Autoimmune disease N Arthritis N Cancer N Stroke N High Cholesterol N Neurologic Disorder N Liver Disease N Organ Transplant N Rheumatoid Arthritis N Arrhythmia N Fibromyalgia N Kidney Disease N Allergies/Hayfever N Adverse Reaction to Anesthesia N Thyroid Problems N Anemia N Brain Injury N Heart Attack ([place]) N Osteopenia N Diabetes N Bleeding Disorder N Seizures/Epilepsy N AIDS/HIV N Congestive Heart Failure (CHF) N Asthma N Amputation N Reflux/GERD N Sleep Apnea N Hepatitis N Aneurysm N Heart Disease N Pulmonary Embolism N Hypertension N Osteoporosis N Past Encounters Encounter ID Performer Location Encounter Start Date Encounter Closed Date Diagnosis/Indication Diagnosis SNOMED-CT Code Diagnosis ICD10 Code Diagnosis IMO Codes Diagnosis Note [id number] Rishi Darby MD [address] [address] 03/02/2025 14:57:15 03/02/2025 15:13:41 Osteoarthritis of right knee joint [id number] 93859 M17.11 [id number] Pain of ri ght knee joint 2888105406 24382 M25.561 774716 Chondrocal cinosis of joint of right knee 3409577617 916263 M11.261 [id number] FRANK TIRADO [address] [place] [address] 03/19/2025 14:06:28 03/19/2025 14:47:09 Osteoarthritis of right knee joint 6963682086 98354 M17.11 8941182 Pain of ri ght knee joint 8890687917 33159 M25.561 079906 Chondrocal cinosis of joint of right knee 9996094349 305530 M11.261 [id number] Osteoarthr itis of knee 268780957 M17.9 Health Concerns Section Related Observation LastModified by Organization Detai ls LastModified Time None Recorded Concern Status LastModified by Organization Details LastModified Time None Recorded Payers Encounter Date Sequence Insurance Name Policy Number Policy Patel Covered Member ID Patel Member ID Guarantor Name 03/19/2025 1 [facility] (MEDICARE REPLACEMENT/A DVANTAGE - PPO) [id number] Zachary Collado [id number] Zachary Collado Notes Date Note Type Note Provider Name and Address Organization Details Recorded Time 03/19/2025 text/html ROS as noted in the HPI Patient returns to the office today for continued management of his right knee. He reports he is feeling much better today. He wishes to proceed with the injection. He has some questions about his diagnosis. PRIOR:Patient presents for reevaluation of his right knee. We did receive authorization to move forward with viscosupplementation . He was brought back to the room. He came out after a couple minutes and stated he was having some mild chest discomfort and wished to leave. He appeared in no distress. His was here with him. We offered to call for assistance but he declined. He wished to reschedule his injection appointment which he did at the [facility]. PRIOR:74-year-old gentleman here for an evaluation and second opinion regarding persistent right knee pain. He has previously been treated at [facility] for mild right knee osteoarthritis and chondrocalcinosis. I did review an office note from 06/20/2024, he underwent a cortisone injection. He had undergone a Durolane injection on 03/07/2024 that had provided excellent relief. He did not get any relief from the 06/20/2024 cortisone injection. In any event, he reports intermittent predominantly medially based right knee pain. He denies any swelling. Pain is variable ranging between a 4 to a 6 on a 10 point scale. He describes it as dull/aching. He denies servando catching or locking but does note occasional sensations of instability. He is retired. Current non-smoker. He reports he is healthy. REBECA IRIZARRY PA-C [address], [place], [address], [place] [facility] 03/19/2025 21:35:01
--- OUTSIDE RECORDS SUMMARY | 2025-05-26 13:42 | XMS_ITS | Clinical Summary ---
Author Organization [facility] [address] [facility] [address] Address [address] [place] [address] Phone Care Team Providers Care Seo Consultant Name Role Phone Charity Meeks MD Primary Care Provider [phone] Allergies Active Allergy Reactions Criticality Noted Date Comments Atorvastatin Pain Medium 12/18/2023 Penicillins Hives Medium 01/19/2006 Medications aspirin 81 mg capsule Take 1 tablet by mouth 1 (one) time each day. 04/30/20 17 Active cyanocobalamin (VITAMIN B-12) 500 mcg tablet Take by mouth. 04/30/20 17 Active omega3/dha/epa/ fish oil/vit D3 (FISH OIL-VIT D3 ORAL) Take by mouth. 04/30/20 17 Active rosuvastatin (CRESTOR) 20 mg tabletIndicatio ns:Hypercholest eremia Take 1 tablet (20 mg total) by mouth 1 (one) time each day. 30 each 5 01/07/20 25 07/05/ 026 Active metoprolol succinate (TOPROL-XL) 50 mg 24 hr tablet TAKE 1 TABLET BY MOUTH EVERY DAY 90 tablet 1 03/27/20 25 Active meloxicam (MOBIC) 15 mg tablet Take 1 tablet (15 mg total) by mouth 1 (one) time each day. 03/07/20 25 Active traMADoL (ULTRAM) 50 mg tablet 1 tablet (50 mg total). Active chlorhexidine (PERIDEX) 0.12 % solution 15 mL if needed. Active losartan (COZAAR) 100 mg tabletIndicatio ns:Hypertension , unspecified type Take 1 tablet (100 mg total) by mouth 1 (one) time each day. 30 each 5 03/31/20 25 026 Active tadalafiL (CIALIS) 20 mg tabletIndicatio ns:Erectile dysfunction, unspecified erectile dysfunction type TAKE 1 TABLET BY MOUTH 1 TIME EACH DAY IF NEEDED FOR ERECTILE DYSFUNCTION. 12 tablet 1 05/07/20 25 Active tadalafiL (CIALIS) 20 mg tabletIndicatio ns:Erectile dysfunction, unspecified erectile dysfunction type Take 1 tablet (20 mg total) by mouth 1 (one) time each day if needed for erectile dysfunction. 12 tablet 3 11/05/19 25 025 Discontinued Active Problems Problem Noted Date Diagnosed Date Hypertension 11/19/2023 Spinal stenosis of lumbar re gion with neurogenic claudication 05/18/2021 Overweight (BMI 25.0-29.9) 09/14/2017 Erectile dysfunction 04/30/2017 Heart burn 04/30/2017 Hypercholesteremia 01/11/2006 Encounters Date Type Department Care Team Description 03/31/2025 11:00 AM EDT Office Visit Adult Medicine [place] [address] [place] [address] Kaye Zelaya PA Plantar fasciitis, bilateral (Primary Dx); Bilateral foot pain; Hypertension, unspecified type; Hypercholesteremia from Last 3 Months Immunizations Immunization Administration Dates Next Due Influenza, Unspecified 05/04/2016 [...] Years Used Date Smoking Tobacco: Former Cigarettes 1 Q uit: 07/05/2017 Smokeless Tobacco: Never Tobacco [...] care for your loved ones. For example, home child care provider or elderly care for an older adult? [...] Date Recorded What is your living situation? Unrecognized valu e 07/15/2024 Sex and Gender Information Value Date Recorded Sex Assigned at Not on file Legal Sex Male 1:35 PM EST Gender Identity Not on file Sexual Orientation Not on file Last Filed Vital Signs Vital Sign Reading Time Taken Comments Blood Pressure 160/86 03/31/2025 11:18 AM EDT Pulse 86 03/31/2025 10:56 AM EDT Temperature 37.1 C (98.7 F) 12/30/2024 10:25 AM EDT Respiratory Rate 12 12/30/2024 10:25 AM EDT Oxygen Saturation 96% 12/30/2024 10:25 AM EDT Inhaled Oxygen Concentration - - Weight 91.6 kg (202 lb) 03/31/2025 10:56 AM EDT Height 177.8 cm (5' 10 ) 03/31/2025 10:56 AM EDT Body Mass Index 28.98 03/31/2025 10:56 AM EDT Plan of Treatment Upcoming Encounters Date Type Department Care Team (Late st Contact Info) Description 07/21/2025 11:30 AM EST Office Visit Adult Medicine [facility] [address] [place] [address] Charity Meeks MD [address] [place] [address] Health Maintenance Due Date Last Done Comments [...] Discontinued 04/30/2017 Abdominal Aortic Aneurysm (AAA) Screen Discontinued 02/09/2021 Depression Screening Completed 07/15/2024 HIB Vaccines [...] Associated Diagnosis Comments COMPREHENSIVE METABOLIC PANEL Routine 01/01/2025 8:56 AM EDT Paresthesia LIPID PANEL WITH REFLEX TO DIRECT LDL Routine 01/01/2025 8:56 AM EDT Hypercholesteremia ABDOMINAL AORTIC ANEURYSM SCRREN Routine 02/09/2021 COLONOSCOPY Routine 04/30/2017 HEPATITIS C SCREENING Routine 10/26/2015 from Last 3 Months or Most Recently Relevant to Health Maintenance Results * (ABNORMAL) Lipid panel with reflex to direct LDL (01/01/2025 8:56 AM EDT) Cholesterol 227(H) 0 - 200 mg/dL LAB CHEMISTRY METHOD 01/01/2025 2:11 PM EDT [facility] Triglycerides 172(H) 0 - 150 mg/dL LAB CHEMISTRY METHOD 01/01/2025 2:11 PM EDT [facility] HDL 57 >=40 mg/dL LAB CHEMISTRY METHOD 01/01/2025 2:11 PM T [facility] LDL Calculated 136(H) 0 - 100 mg/dL LAB CHEMISTRY METHOD 01/01/2025 2:11 PM EDT [facility] VLDL Cholesterol Pradeep 34.4 mg/dL LAB CHEMISTRY METHOD 01/01/2025 2:11 PM EDT [facility] Non HDL Chol. (LDL+VLDL) 170(H) <145 mg/dL LAB CHEMISTRY METHOD 01/01/2025 2:11 PM EDT [facility] Chol/HDL Ratio 4.0 0.0 - 4.4 LAB CHEMISTRY METHOD 01/01/2025 2:11 PM T [facility] Blood Venous blood specimen / Unknown Venipuncture / Unknown 01/01/2025 8:56 AM EDT 01/01/2025 8:56 AM EDT us Kaye MASSEY LAB BLOOD ORDERABLES Final Resul t [facility] [address] [place] [address], * (ABNORMAL) Comprehensive metabolic panel (01/01/2025 8:56 AM EDT) Sodium 139 133 - 145 mmol/L LAB CHEMISTRY METHOD 01/01/2025 2:11 PM [facility] Potassium 4.3 3.5 - 5.5 mmol/L LAB CHEMISTRY METHOD 01/01/2025 2:11 PM [facility] Chloride 105 96 - 110 mmol/L LAB CHEMISTRY METHOD [facility] CO2 28 21 - 32 mmol/L LAB CHEMISTRY METHOD 01/01/2025 2:11 PM [facility] Anion Gap 6 3 - 11 LAB CHEMISTRY METHOD 01/01/2025 2:11 PM [facility] Glucose 105(H) 70 - 100 mg/dL LAB CHEMISTRY METHOD 01/01/2025 2:11 PM [facility] BUN 23 5 - 25 mg/dL LAB CHEMISTRY METHOD 01/01/2025 2:11 PM [facility] Creatinine 1.37(H) 0.70 - 1.30 mg/dL LAB CHEMISTRY METHOD 01/01/2025 2:11 PM [facility] eGFR 54(L) >=60 mL/min/1. 73m2 LAB CHEMISTRY METHOD 01/01/2025 2:11 PM [facility] Comment:Calculation based on the Chronic Kidney Disease Epidemiology Collaboration (CKD-EPI) equation refit without adjustment for race. BUN/Creatinine Ratio 16.8 LAB CHEMISTRY METHOD 01/01/2025 2:11 PM [facility] Calcium 9.8 8.5 - 10.5 mg/dL LAB CHEMISTRY METHOD 01/01/2025 2:11 PM [facility] AST (SGOT) 20 10 - 42 unit/L LAB CHEMISTRY METHOD 01/01/2025 2:11 PM [facility] ALT (SGPT) 39 10 - 60 unit/L LAB CHEMISTRY METHOD 01/01/2025 2:11 PM [facility] Alkaline Phosphatase 78 42 - 121 unit/L LAB CHEMISTRY METHOD 01/01/2025 2:11 PM [facility] Total Protein 6.8 6.0 - 8.0 g/dL LAB CHEMISTRY METHOD 01/01/2025 2:11 PM [facility] Albumin 4.1 3.2 - 5.0 g/dL LAB CHEMISTRY METHOD 01/01/2025 2:11 PM EDT [facility] Total Bilirubin 0.4 0.0 - 1.4 mg/dL LAB CHEMISTRY METHOD 01/01/2025 2:11 PM EDT [facility] Blood Venous blood specimen / Unknown Venipuncture / Unknown 01/01/2025 8:56 AM EDT 01/01/2025 8:56 AM EDT Kaye MASSEY LAB BLOOD ORDERABLES Final Resul t [facility] [address] [place] [address], [place] [phone] * Abdominal Aortic Aneurysm Screen (02/09/2021) Pathologist [facility] Abdominal Aortic Aneurysm (AAA) Screening ABSTRACTED Anatomical Region Laterality Modality Other Historical Provider HEALTH MAINTENANCE Final Result * Colonoscopy (04/30/2017) Pathologist [facility] Colonoscopy no interpretation , abstracted Anatomical Region Laterality Modality Other Historical Provider HEALTH MAINTENANCE Final Result * Hepatitis C Screening (10/26/2015) Pathologist [facility] Hepatitis C Screening ABSTRACTED Historical Provider HEALTH MAINTENANCE Final Result from Last 3 Months or Most Recently Relevant to Health Maintenance Insurance [facility] MEDICARE Care Teams Seo Consultant Relationship Specialty Start Date End Date Charity Meeks MD [address] [place] [address] PCP - General Internal Medicine 05/30/24
--- OUTSIDE RECORDS SUMMARY | 2025-05-26 13:42 | XMS_ITS | Clinical Summary ---
Author Organization [facility] Prior to 11/01/24 Address [address] [place] [address] Care Team Providers Care Locator Name Role Phone Lobito Tadeo MD Primary Care Provider [phone] Allergies Active Allergy Reactions Criticality Noted Date Comments Penicillins Hives Medium 01/19/2006 Medications Medication Sig Dispensed Refills Start Date End Date Status Cod Liver Oil CAPS Take by mouth. 0 04/30/2017 Ac tive Aspirin 81 MG CAPS Take 1 tablet by mouth daily. 0 04/30/2017 Active cyanocobalamin 500 MCG tablet Take by mouth. 0 04/30/2017 Active Fish Oil-Cholecalcifero l (Fish Oil + D3) 2359-4397 MG-UNIT CAPS Take by mouth. 0 04/30/2017 [...] Tdap / Td (1 - Tdap) 1968 Shingrix-Zoster Vaccine (1 of 2) 1999 Pneumococcal [...] age to complete this topic Care Teams Locator Relationship Specialty Start Date End Date Lobito Tadeo MD PCP - General Family Medicine 12/26/21
--- OUTSIDE RECORDS SUMMARY | 2025-05-26 13:42 | XMS_ITS | Data Portability ---
Author Organization [place] [facility] [place] Address [address] [place] [address] Care Team Providers Care Trimming Assembler Name Role Phone ROBERTPEREZ Primary Care Provider [phone] PEREZ JONES Referring Provider [phone] Assessment Encounter Date Assessment Date Assessment LastModified by Organization Details LastModified Time 01/26/2025 01/26/2025 He has mild righ t knee osteoarthritis. He has some degree of chondrocalcinosis in the medial and lateral compartments. His pain is predominantly medially based. We reviewed the natural history of osteoarthritis. The patient understands that symptoms may progress over time requiring further intervention. We discussed in detail available treatment options. We discussed activity modification, especially avoiding impact type activities. We discussed the need for an ongoing maintenance flexibility and strengthening program. This should involve the core musculature, the hip, as well as the quadriceps and hamstrings. Intermittent icing 20 minutes off 3 to 4 times a day with the skin protected may be helpful for control of swelling. Wyyo-yac-vheaunl anti-inflammatory medications with appropriate GI precautions or Tylenol may be helpful in controlling intermittent symptoms of pain. An assistive device such as a cane may be helpful in unloading the joint. Supplements may be considered such as chondroitin and glucosamine sulfate. The literature is unclear as to benefit, however, some patients see improvement with these type of supplements. We also discussed other interventions including therapeutic injections. We discussed varieties of injections including cortisone, viscosupplementatio n, and PRP. We also discussed the possibility of surgical intervention if symptoms persist. We discussed arthroscopic intervention as well as total knee arthroplasty. A decision for surgery is dependent on a variety of factors including patient characteristics, co-morbidities, expectations, and expected outcome. I reviewed treatment options with him. At [...] move his knee around . Not available 01/27/2025 09:01:14 03/19/2025 03/19/2025 We reviewed the degenerative changes [...] Lab None recorded. Referral None recorded. Procedures intra-artic ular injection, knee, viscosupple ment (PROC) - Please check insurance for Visco Authorizati on, insurance preferred med. Please see new in office policy for what meds are to be authorized Last Type of Injection? Cortisone or Visco Last Administere d Date: cortisone June 2024 at [facility]. Visco March 2024 at [facility] Choose One: 1 series Knee Laterality: Right 2024 025 [email or web address] Not available 10:36:24 Surgeries None recorded. Imaging XR, knee, 3 view 2024 025 [email or web address] [facility], [address], [place], [address], 15:33:37 Medication Orders Synvisc-One 48 mg/6 mL intra-artic ular syringe 2024 [employer] [id number], [address] [place], [address], 20:16:33 lidocaine (PF) 10 mg/mL (1 %) injection solution 2024 [employer] [id number], [address] [place], [address], 20:16:33 Patient TargetsNo targets recorded. Patient Instructions Encounter Date Encounter Id Patient Instructions Last Modified By Organization Details Last Modified Time 01/26/2025 [id number] views of the r ight knee were obtained on 01/26/2025 in the [place] office. There is mild narrowing of the medial joint space. Trace chondrocalcinosis along the margin of the medial joint space. Subtle chondrocalcinosis also projects along the lateral joint line. Minimal retropatellar spurring. Patella tracks centrally. Findings: Mild degenerative changes noted right knee. Chondrocalcinosis. Interpreted by: Rishi Darby MD Not available 01/26/2025 13:27:12 03/02/2025 [id number] views of the r ight knee were obtained on 01/26/2025 in the [place] office. There is mild narrowing of the medial joint space. Trace chondrocalcinosis along the margin of the medial joint space. Subtle chondrocalcinosis also projects along the lateral joint line. Minimal retropatellar spurring. Patella tracks centrally. Findings: Mild degenerative changes noted right knee. Chondrocalcinosis. Interpreted by: Rishi Darby MD Not available 03/02/2025 06:24:43 03/19/2025 [id number] views of the r ight knee were obtained on 01/26/2025 in the [place] office. There is mild narrowing of the [...] Time Osteoarthri tis of right knee joint 4991696550263 00 Active 2024 Rishi Darby MD [address], [place], [address], [place] [facility] 06:17:01 Chondrocalc inosis of joint of right knee 2173124830280 107 Active 2024 Rishi Darby MD [address], [place], [address], [place] [facility] 13:35:35 Pain of right knee joint 3841729968164 00 Active 2024 Rishi Darby MD [address], [place], [address], [place] [facility] 06:24:41 Problem Notes None recorded. Procedures Surgical History Date Name Laterality Status Provider Name and Address Organization Details Recorded Time Synvisc-One Knee Inj completed REBECA IRIZARRY PA-C [address], [place], [address], [place] [facility] 03/19/2025 21:33:52 Synvisc-One Knee Inj w/US cancelled Crystal Vega [place] [facility] 03/12/2025 08:58:04 Spine Surgery completed Crystal Vega [place] [facility] 01/26/2025 13:21:05 Imaging Results None recorded. [...] Not Available Not Available Not Avai lable Synvisc-One 48 mg/6 mL intra-articu lar syringe Take 6 mL by intraarticu lar route. 2024 active Not Available Not Available Not Avai lable Vitals Date Recorded Body height Body mass index (BMI) Body weight Provider Name and Address Organization Details Last Updated DateTime 01/26/2025 180.34 cm 27.9 kg/m2 15511.[address] [place] [facility] 01/26/2025 13:20:03 Date Recorded Body height Body mass index (BMI) Body weight Provider Name and Address Organization Details Last Updated DateTime 03/02/2025 180.34 cm 28 kg/m2 31719.[address] [facility] 03/02/2025 15:03:32 Date Recorded Body height Provider Name an d Address Organization Details Last Updated DateTime 03/19/[address] [place] [facility] 03/19/2025 16:20:30 Social History None recorded. Functional Status Question Answer Note LastModified by [employer] ion Details LastModified Time How many times per week do you consume alcohol? 1-2 times per week [email or web address] Information not available 01/26/2025 Do you use any illicit or recreational drugs? No Information not available 01/26/2025 Do you or have you ever used any other forms of tobacco or nicotine? No [email or web address] Information not available 01/26/2025 What is your level of alcohol consumption? Occasional [email or web address] Information not available 01/26/2025 Are you currently employed? No [email or web address] Information not available 01/26/2025 Mental Status None recorded. Family History Nothing Reported. Medical History Condition Response Coronary Artery Disease N Gout N Hyperthyroidism N MRSA N Blood Transfusion N Emphysema N Hypothyroidism N COPD N Depression N Pacemaker N Vascular Disease N Gastrointestinal Disease N Anxiety Disorder N Autoimmune disease N Arthritis N Cancer N Stroke N High Cholesterol N Neurologic Disorder N Liver Disease N Organ Transplant N Arrhythmia N Rheumatoid Arthritis N Fibromyalgia N Kidney Disease N Allergies/Hayfever N Adverse Reaction to Anesthesia N Thyroid Problems N Anemia N Brain Injury N Heart Attack ([place]) N Osteopenia N Diabetes N Bleeding Disorder [...] ICD10 Code Diagnosis IMO Codes Diagnosis Note [id number] MD LEANDRA Barros [address] [address] 01/26/2025 13:00:40 01/26/2025 13:45:15 Osteoarthritis of right knee joint 7211457817 95483 M17.11 0016214 Pain of ri ght knee joint 2883908868 27878 M25.561 869743 Chondrocal cinosis of joint of right knee 5294800491 916453 M11.261 [id number] Rishi Darby MD [address] [address] 03/02/2025 14:57:15 03/02/2025 15:13:41 Osteoarthritis of right knee joint 2149027730 71772 M17.11 1644434 Pain of ri ght knee joint 9795188579 71272 M25.561 632258 Chondrocal cinosis of joint of right knee 4104248974 057694 M11.261 [id number] REBECA IRIZARRY PA-C [facility] [address] [address] 03/19/2025 14:06:28 03/19/2025 14:47:09 Osteoarthritis of right knee joint 5140206911 61850 M17.11 8762028 Pain of ri ght knee joint 4119861379 51948 M25.561 721210 Chondrocal cinosis of joint of right knee 6107118626 012964 M11.261 03012496 Osteoarthr itis of knee 307010902 M17.9 Health Concerns Section Related Observation LastModified by Organization Detai ls LastModified Time None Recorded Concern Status LastModified by Organization Details LastModified Time None Recorded Advance Directives Directive None Recorded Payers Insurance Date Sequence Insurance Name Policy Number Policy Patel Covered Member ID Patel Member ID Guarantor Name 03/20/2025 1 [facility] (MEDICARE REPLACEMENT/A DVANTAGE - PPO) [id number] Zachary Collado [id number] Zachary Collado Notes Date Note Type Note Provider Name and Address Organization Details Recorded Time 01/26/2025 text/html 74-year-old gentleman here for an evaluation and second opinion regarding persistent right knee pain. He has previously been treated at [facility] for mild right knee osteoarthritis and chondrocalcinosis. [...] Current non-smoker. He reports he is healthy. Rishi Darby MD [address], [place], [address], [facility] 01/27/2025 09:01:26 03/02/2025 text/html Patient presents for reevaluation of his right knee. 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 PRIOR:74-year-old gentleman here for an evaluation and second opinion regarding persistent right knee pain. He has previously been treated at [facility] for mild right knee osteoarthritis and chondrocalcinosis. [...] Current non-smoker. He reports he is healthy. Rishi Darby MD [address], [place], [address], 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 PRIOR:74-year-old gentleman here for an evaluation and second opinion regarding persistent right knee pain. He has previously been treated at [facility] for mild right knee osteoarthritis and chondrocalcinosis. [...] REBECA IRIZARRY PA-C [address], [place], [address], [place] [facility] 03/19/2025 21:35:01
--- OUTSIDE RECORDS SUMMARY | 2025-05-26 13:42 | XMS_ITS | Data Portability ---
Author Organization [facility], [facility] Address [address] [place] [address] Care Team Providers Care Help Desk Support Specialist Name Role Phone [facility] Primary Care Provi evan Assessment Encounter Date Assessment Date Assessment LastModified by Organization Details LastModified Time 03/07/2024 03/07/2024 I am seeing the patient today under the supervision of who was available but who did not see the patient. Please see procedure documentation for further information about the injection performed today. Not available 03/07/2024 07:25:10 Plan of Treatment Reminders Order Date Submit Date Provider Name Organization Details Last Modified By Last Modified Time Details Appointments None record ed. Lab None record ed. Referral None record ed. Procedures None record ed. Surgeries None record ed. Imaging XR, knee, 4 or more view 2024 13:35: 46 025 FRANK Lambert Office [address],[facility] [address], [place], [address], ROSETTA MESSENGER 5 16:07:02 MedicationOrders None record ed. VaccineOrders None record ed. Patient TargetsNo targets recorded. Patient Instructions Encounter Date Encounter Id Patient Instructions Last Modified By Organization Details Last Modified Time 03/07/2024 [id number] You have been provided with a viscosupplementation [...] hours following the injection. This is called ericka solorzano . To help minimize the chances of this, please see the post-injection instructions above. There is a less than 1% chance of an infection. If you notice any signs of infection (redness, warmth, drainage, fever greater than 100 degrees) please call our office or contact us through the portal ZAN. [email or web address] Not available 03/07/2024 07:25:14 Reason for Referral None Reported. Results Created Date Observation Date Name Description Value Unit Range Abnormal Flag Specimen Type Note LastModifiedBy Organization Detail LastModifiedTime 06/20/2024 06/20/2024 knee 4 view [email or web address]=[email or web address]%6Oq6ATa8 csVyfF9uTlZGfzxAy0TnFAUnCvrVBX0gBhSTfap71b7632WB6Xia8yICILsLhDofSuM Not Available [facility] Office , [address],[facility] [address] [place] , [address], , 06/20/2024 13:44:48 06/20/2024 06/20/2024 knee 4 view [email or web address] hfIatO5nAyIFhthCt1LoHXGeVwpYVA0nVdRQyen10z1532FT0Jvv0wVJDPkQsSjvWnW Not Available [facility] Office , [address],[facility] [address] , [place] , [address], , 06/20/2024 13:44:50 Result Notes Documentation Provider Name and Address Organization Details Recorded Time Xr, Knee, 4 Or More View : [email or web address] Encrypted=iaMhTegZC9jPvzX Uv6g%8WKBzeYkpen6ahuv%2Fg 6EMr2koXxvJ2yNmFUmorOb7Wi LICkKxjQBJ0jZvUMbzx27k833 5YO7Lpo2jKPAFoOhDvuYvZ Not Available [facility] 06/20/2024 13:44: 48 Xr, Knee, 4 Or More View : [email or web address] Encrypted=qaPtBjpDO0kRvoH Uv6g%4SUZkuZavps9fdqb%2Fg 5JMd0uxCemG1kTlFIxnjRi5Yk MMXnKjxQUA7ePzTHezc17p040 4SB8Cvb8jTTCSoVtAdxJiE Not Available [facility] 06/20/2024 13:44: 50 Problems Name Problem SNOMED Code Status Onset Date Resolution Date Notes Provider Name and Address Organization Details Recorded Time Osteoarthri tis of right knee joint [id number] 00 Active 2023 Winifred Hays i, PA-C [address] [facility], [place], [address], [facility] 4 10:10:30 Problem Notes None recorded. Procedures Surgical History Date Name Laterality Status Provider Name and Address Organization Details Recorded Time 5 JZKNEE INJ cancelled José Antonio Alcaraz PA-C [address], [place], [address], [facility] 11/06/2024 05:53:02 5 Sports Knee 4&1 completed Winifred Morales PA-C [address], [place], [address], [facility] 06/20/2024 10:32:57 4 Durolane Knee Injection completed José Antonio Alcaraz PA-C [address], [place], [address], [place] [facility] 03/07/2024 07:25:21 4 Sports Knee 4&1 completed Destiny Mireles PA-C [address], [place], [address], [facility] 01/08/2024 09:17:47 4 Sports Knee 4&1 completed Destiny Mireles PA-C [address], [place], [address], [place] [facility] 10/04/2023 09:52:50 Imaging Results Imaging Date Name Status LastModifiedBy Organiza tion Detail LastModifiedTime 06/20/2024 knee 4 view completed Not Available [facility] , [address] , [place] , [address], , 06/20/2024 13:44:48 06/20/2024 knee 4 view completed Not Available [facility] , [address] , [place] , [address], [place] , 06/20/2024 13:44:50 Procedure Notes None recorded. Medical Equipment None Reported. Allergies No known drug allergies Medications Name Authored On Sig Start Date Stop Date Status Note Indication Fill Status Repeat Number Dispense Quantity LastModified by Organization Details LastModified Time amlod ipine 5 mg table t 4 09:01:05 TAKE 1 TABL ET BY DELGADO Morris FOR 180 DAYS . TAKE BEFO RE BED active Not Available Not availab le 0 Not Available Not Available [facility] 10/04/2023 09:01:05 amoxi cilli n 500 mg table t 4 09:01:05 TAKE 2 TABL ETS NORW , THEN TAKE 1 TABL ET BY DELGADO Degroot 3 TIME S A DAY 10/03 aborted Not Available Not availab le 0 Not Available REAL PEÑA [facility] 10/04/2023 09:11:58 losar pond 25 mg table t 5 09:46:33 TAKE 1 TABL ET BY MOUT H EVER Y DAY active Not Available Not availab le 0 Not Available Not Available [facility] [employer] - prod 11/03/2024 09:46:33 losar pond 50 mg table t 5 09:46:34 TAKE 1 TABL ET BY MOUT H EVER Y DAY active Not Available Not availab le 0 Not Available Not Available [facility] - External Data [employer] - prod 11/03/2024 09:46:34 chlor hexid ine gluco jose 0.12 % mouth wash 5 09:46:35 PLEA SE SEE YOSELIN CHED FOR DETA ILED DIRE CTIO NS active Not Available Not availab le 0 Not Available Not Available [facility] - External Data Service - prod 11/03/2024 09:46:35 oxyco done 5 mg table t 5 09:46:35 TAKE 1 TABL ET ORAL LY EVER Y 6 HOUR S NEED ED FOR PAIN PART IAL FILL UPON SHANIQUE ENT REQU EST. active Not Available Not availab le 0 Not Available Not Available [facility] - External Data [employer] - prod 11/03/2024 09:46:35 celec oxib 200 mg capsu le 5 11:09:24 TAKE 1 CAPS ULE BY MOUT H 1 TIME EACH DAY. active Not Available Not availab le 0 Not Available Not Available [facility] - External Data [employer] - prod 12/30/2024 11:09:24 tadal afil 20 mg table t 5 11:09:24 TAKE 1 TABL ET BY MOUT H 1 TIME EACH DAY IF NEED ED FOR EREC TILE DYSF UNCT ION. active Not Available Not availab le 0 Not Available Not Available [facility] - External Data Service - prod 12/30/2024 11:09:24 trama dol 50 mg table t 5 11:09:25 TAKE 1 OR 2 TABL ETS BY MOUT H TWIC E A DAY NEED ED ONLY WITH ACET JHAVERI OPHE N 1000 MG active Not Available Not availab le 0 Not Available Not Available [facility] - External Data Service - prod 12/30/2024 11:09:25 famot idine 20 mg table t 5 01:55:52 TAKE 1 TABL ET BY MOUT H TWIC E A DAY active Not Available Not availab le 0 Not Available Not Available [facility] - External Data [employer] - prod 01/02/2025 01:55:52 metop rolol succi jose ER 50 mg table t,ext ended relea se 24 hr 5 01:55:52 TAKE 1 TABL ET BY MOUT H EVER Y DAY active Not Available Not availab le 0 Not Available Not Available [facility] - External Data [employer] - prod 01/02/2025 01:55:52 atorv astat in 20 mg table t 5 01:55:53 TAKE 1 TABL ET BY MOUT H EVER Y DAY active Not Available Not availab le 0 Not Available Not Available [facility] - External Data Service - prod 01/02/2025 01:55:53 silde nafil 100 mg table t 5 01:55:53 TAKE 1 TABL ET BY MOUT H EVER Y NEED ED FOR EREC TILE DYSF UNCT ION active Not Available Not availab le 0 Not Available Not Available [facility] - External Data Service - prod 01/02/2025 01:55:53 melox icam 15 mg table t 5 01:38:24 TAKE 1 TABL ET EVER Y DAY BY MOUT H AFTE R MEAL complet ed Arthritis of right knee joint Not availab le 2 Not Available [facility] Available [facility] 04/07/2025 13:13:50 Vitals Date Recorded Body height Body mass index (BMI) Body weight Systolic And Diastolic Provider Name and Address Organization Details Last Updated DateTime 06/20/2024 177.8 cm 29.4 kg/m2 12165.44 g 130/80 mm[Hg] Sumit Luz [facility] 06/20/2024 13:35:08 Date Recorded Body height Body mass index (BMI) Body weight Provider Name and Address Organization Details Last Updated DateTime 10/04/2023 177.8 cm 29.4 kg/m2 36671.44 g REAL PEÑA [facility] 10/04/2023 09:11:52 Date Recorded Body height Body mass index (BMI) Body weight Provider Name and Address Organization Details Last Updated DateTime 03/07/2024 177.8 cm 29.4 kg/m2 25559.44 g JAIME [facility] 03/07/2024 09:29:32 Date Recorded Body height Body mass index (BMI) Body weight Provider Name and Address Organization Details Last Updated DateTime 05/06/2024 177.8 cm 29.4 kg/m2 05838.44 g Lupe Carol Ann [facility] 05/06/2024 09:27:55 Social History Social History Observation Description Date Observed Sex Unknown 05/18/2025 Legal Sex Male Status Not (finding) 05/26/20 25 No social history survey screeners recorded No social history SDOH screeners recorded Functional Status None recorded. No Functional Screening assessment recorded No Functional SDOH screeners recorded Mental Status None recorded. No Mental Screening assessment recorded No Mental SDOH screeners recorded Family History Nothing Reported. Medical History Condition Response Allergies/Hayfever N Coronary Artery Disease N Breathing or lung disorders N Anxiety/Depression N Emphysema N Nerve Disorders N Thyroid Problems N COPD N Pacemaker N Kidney/Bladder Problems N Anemia N Vascular Disease N Heart Trouble N Gastrointestinal Disease N Heart Attack (DE) N Cholesterol Y Diabetes N Autoimmune disease [...] ICD10 Code Diagnosis IMO Codes Diagnosis Note [id number] FRANK Mayfield [address] [place] [address] 10/04/2023 09:00:29 10/04/2023 09:57:52 Arthritis of right knee joint 8148961881 920563 M13.157 [id number] FRANK Mayfield [address] [place] [address] 01/08/2024 09:07:03 02/01/2024 13:48:32 Osteoarthritis of right knee joint 2253041815 46294 M17.11 [id number] FRANK Moe [address] [place] [address] 03/07/2024 09:23:22 04/02/2024 10:09:03 Osteoarthritis of right knee joint 5972914356 43910 M17.11 [id number] Winifred Vásquez PA-C [place] [address] [place] [address] 05/06/2024 09:01:53 05/21/2024 07:49:14 Osteoarthritis of right knee joint 5312497311 13524 M17.11 [id number] Winifred Morales PA-C [facility] [address] [place] [address] 06/20/2024 13:24:56 07/03/2024 16:07:02 Osteoarthritis of right knee joint 8122456953 21562 M17.11 [id number] Health Concerns Section Related Observation LastModified by Organization Detai ls LastModified Time None Recorded Concern Status LastModified by Organization Details LastModified Time None Recorded SDOH Concern Status LastModified by Organization Detai ls LastModified Time None Recorded Advance Directives Directive None Recorded Payers Insurance Date Sequence Insurance Name Policy Number Policy Patel Covered Member ID Patel Member ID Guarantor Name 01/01/2025 1 [facility] (MEDICARE REPLACEMENT/A DVANTAGE - PPO) [id number] Zachary Collado [id number] Zachary Collado Notes Date Note Type Note Provider Name and Address Organization Details Recorded Time 4 text/html I am seeing the patient today under the supervision of Dr. Bhandari who was available but who did not see the patient. HPI: Patient presents today regarding their right knee. They have had difficulty up and down stairs sitting standing. Problems ambulating. Aumn-gro-ctxtpks medications are helping somewhat but not significantly. [...] palpation about the joint line. Negative Jero s . Calf is supple and nontender. Neurovascularly intact distally. Impression: right Knee osteoarthritis Plan: We discussed the role of conservative management including medications, physical therapy, injection and bracing. At this point the patient wishes to proceed with injection today. See procedure documentation. They will follow up with us as scheduled. All questions answered Destiny Mireles PA-C [address], [place], [address], [facility] 10/04/2023 09:53:06 4 text/html I am seeing the patient today under the supervision of Dr. Bhandari who was available but who did not see the patient. HPI: Patient presents today regarding their right knee. They have had difficulty up and down stairs sitting standing. Problems ambulating. Aavi-nrj-darmyat medications are helping somewhat but not significantly. [...] palpation about the joint line. Negative Jero s . Calf is supple and nontender. [...] All questions answered Destiny Mireles PA-C [address], [place], [address], [facility] 01/08/2024 09:59:11 4 text/html I am seeing [...] since 2021. Discussed low-impact exercise and utilizing dksa-wlg-ueiuqrh topical and oral anti-inflammatories as needed for pain relief. All of his concerns are addressed and he understands and agrees with the plan. Speech recognition mold operator software was used to create portions of this document. An attempt at proofreading has been made to minimize errors. Please call for corrections. Winifred Vásquez PA-C [address] [place] [address] [address], [place], [address], [facility] 05/06/2024 10:11:16 5 text/html [...] knee ordered, obtained and reviewed today at [facility] demonstrates mild chondrocalcinosis, mild medial and patellofemoral compartment narrowing. IMPRESSION: Right knee - mild osteoarthritis, chondrocalcinosis PLAN: Findings reviewed. Discussed ongoing conservative treatment options. He elected to proceed with right knee cortisone injection today. Discussed low-impact exercise and utilizing whae-tmh-fwcynzd topical and oral anti-inflammatories as needed for pain relief. Follow up as symptoms dictate. All of his concerns are addressed and he understands and agrees with the plan. Speech recognition mold operator software was used to create portions of this document. An attempt at proofreading has been made to minimize errors. Please call for corrections. Winifred Morales PA-C [address] [place] [address] [address] [facility], [place], [address], [facility] - [facility] 06/20/2024 13:50:28 Care Team Name Role Member ID Specialty Address Phone [facility] Primary Care Provider [id number] [place] [address]
--- OUTSIDE RECORDS SUMMARY | 2025-05-26 13:42 | XMS_ITS | Continuity of Care Document ---
Author Organization [place] [facility] LEANDRA [facility]on Address [address] [facility] [address] [place] [address] Care Team Providers Care Knitting Machine Operator Name Role Phone PEREZ JONES Primary Care Provider ROBERTPEREZ HASKINS Referring Provider [phone] Assessment No assessment recorded. Plan of Treatment Reminders Order Date Submit Date Provider Last Modified By Organization Details Last Modified Time Details Appointments None record ed. Lab None record ed. Referral None record ed. Procedures None record ed. Surgeries None record ed. Imaging None record ed. Medication Orders None record ed. Patient TargetsNo targets recorded. Patient Instructions Encounter Date Encounter Id Patient Instructions Last Modified By Organization Details Last Modified Time 03/02/2025 [id number] views of the r ight knee were obtained on 01/26/2025 in the [facility] office. There is mild narrowing of the medial joint space. Trace chondrocalcinosis along the margin of the medial joint space. Subtle chondrocalcinosis also projects along the lateral joint line. Minimal retropatellar spurring. Patella tracks centrally. Findings: Mild degenerative changes noted right knee. Chondrocalcinosis. Interpreted by: Rishi Darby MD [email or web address] Not available 03/02/2025 06:24:43 Reason for Referral None Reported. Problems Name Problem SNOMED Code Status Onset Date Resolution Date Notes Provider Name and Address Organization Details Recorded Time Osteoarthri tis of right knee joint 4458161741588 00 Active 2024 Rishi Darby MD [address], [place], [address] [place] [facility], 06:17:01 Chondrocalc inosis of joint of right knee 4178352052211 107 Active 2024 Rishi Darby MD [address], [place], [address], [place] [facility], P 13:35:35 Pain of right knee joint 6411326302992 00 Active 2024 Rishi Darby MD [address], [place], [address], [place] [facility], P 06:24:41 Problem Notes None recorded. Procedures Surgical History Date Name Laterality Status Provider Name and Address Organization Details Recorded Time Synvisc-One Knee Inj completed REBECA IRIZARRY PA-C [address], [place], [address], [place] [facility] 03/19/2025 21:33:52 Synvisc-One Knee Inj w/US cancelled [place]Palz [place] [facility], P 03/12/2025 08:58:04 Spine Surgery completed Crystal Vega [facility], P 01/26/2025 13:21:05 Imaging Results None recorded. [...] Updated DateTime 03/02/2025 180.34 cm 28 kg/m2 25773.[address] [facility], P 03/02/2025 15:03:32 Social History None recorded. Functional Status Question Answer Note LastModified by Organizat ion Details LastModified Time How many times per week do you consume alcohol? 1-2 times per week Information not available 01/26/2025 Do you use any illicit or recreational drugs? No [email or web address] Information not available 01/26/2025 Do you or have you ever used any other forms of tobacco or nicotine? No [email or web address] Information not available 01/26/2025 What is your level of alcohol consumption? Occasional [email or web address] Information not available 01/26/2025 Are you currently employed? No Information not available 01/26/2025 Mental Status None recorded. Family History Nothing Reported. Medical History Condition Response Coronary Artery Disease N Gout N Hyperthyroidism N MRSA N Blood Transfusion N Emphysema N Hypothyroidism N Depression N COPD N Pacemaker N Vascular Disease N Gastrointestinal Disease N Anxiety Disorder N Autoimmune disease N Arthritis N Cancer N Stroke N High Cholesterol N Neurologic Disorder N Liver Disease N Organ Transplant N Rheumatoid Arthritis N Arrhythmia N Fibromyalgia N Kidney Disease N Allergies/Hayfever N Adverse Reaction to Anesthesia N Thyroid Problems N Anemia N Brain Injury N Heart Attack (CT) N Osteopenia N Diabetes N Bleeding Disorder [...] ICD10 Code Diagnosis IMO Codes Diagnosis Note [id number] Rishi Darby MD [address] [place] [address] 03/02/2025 14:57:15 03/02/2025 15:13:41 Osteoarthritis of right knee joint 3846133963 64402 M17.11 8546145 Pain of ri ght knee joint 0893057713 63094 M25.561 631223 Chondrocal cinosis of joint of right knee 9900161472 422863 M11.261 [id number] Health Concerns Section Related Observation LastModified by Organization Detai ls LastModified Time None Recorded Concern Status LastModified by Organization Details LastModified Time None Recorded Payers Encounter Date Sequence Insurance Name Policy Number Policy Patel Covered Member ID Patel Member ID Guarantor Name 03/02/2025 1 [facility] (MEDICARE REPLACEMENT/A DVANTAGE - PPO) [id number] Zachary Collado [id number] Zachary Collado Notes Date Note Type Note Provider Name and Address Organization Details Recorded Time 03/02/2025 text/html Patient presents for reevaluation of [...] injection appointment which he did at the front desk agent. PRIOR:74-year-old gentleman here for an evaluation and second opinion regarding persistent right knee pain. He has previously been treated at [facility] for mild right knee osteoarthritis [...] Rishi Darby MD [address], [place], [address], [place] [facility] 03/02/2025 15:17:03
== END 2025-05-26 13:20 | disposition home or self-care (01) ==
LOC: HO.HNS 12:39
PROVIDERS: Visit Provider Physician Assistant
DX: M48.062 Spinal stenosis, lumbar region with neurogenic claudication (principal)
CPT/HCPCS: 99212

== ENCOUNTER → 2025-05-26 12:38 | Outpatient (BNVA) | payer MEDICARE, SELFPAY | PROVIDERS: Visit Provider Physician Assistant | DX: M48.062 Spinal stenosis, lumbar region with neurogenic claudication (principal) | CPT/HCPCS: 99212 ==